=== PATIENT | female | born 1990 | race Caucasian/White ===

== ENCOUNTER 2018-01-19 20:23 | Emergency (ER) | payer OTHER, SELFPAY ==
[2018-01-19] MEDS ORDERED: HYDROCODONE/APAP 7.5/325 MG TAB ONE (20:53)
--- NOTE | 2018-01-19 21:14 | EDPHYS ---
Physician Documentation [facility] Name: Camila Soria Age: 27 yrs Sex: Female : 1990 Arrival Date: 01/19/2018 Time: 20:24 Bed 25 Private MD: ED Physician Agapito Campbell HPI: 01/19 20:41 This 27 yrs old Female presents to ER via Ambulatory with complaints of Wrist pkl Pain. 20:41 The complaints affect the left wrist diffusely. 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 Onset: The symptoms/episode began/occurred 2 day(s) ago. 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 - Social history:: Smoking status: Patient uses tobacco products, smokes one pack cigarettes per day. Patient/guardian denies using alcohol, street drugs. - Ebola Screening: : No symptoms or risks identified at this time. ROS: 20:41 Eyes: Negative for injury, pain, redness, and discharge, ENT: Negative for injury, pkl pain, and discharge, Neck: Negative for injury, pain, and swelling, Cardiovascular: Negative for chest pain, palpitations, and edema, Respiratory: Negative for shortness of breath, cough, wheezing, and pleuritic chest pain, Abdomen/GI: Negative for abdominal pain, nausea, vomiting, diarrhea, and constipation, Back: Negative for injury and pain, : Negative for injury, bleeding, discharge, and swelling, Skin: Negative for injury, rash, and discoloration, Neuro: Negative for headache, weakness, numbness, tingling, and seizure. 20:41 MS/extremity: Positive for pain, of the right wrist. Exam: 20:41 Hand exam: Exam is positive for pain, right wrist. pkl 20:41 Skin: Exam negative for rash. 20:41 Head/Face: Normocephalic, atraumatic. Eyes: Pupils equal round and reactive to light, extra-ocular motions intact. Lids and lashes normal. Conjunctiva and sclera are non-icteric and not injected. Cornea within normal limits. Periorbital areas with no swelling, redness, or edema. ENT: Nares patent. No nasal discharge, no septal abnormalities noted. Tympanic membranes are normal and external auditory canals are clear. Oropharynx with no redness, swelling, or masses, exudates, or evidence of obstruction, uvula midline. Mucous membranes moist. Neck: Trachea midline, no thyromegaly or masses palpated, and no cervical lymphadenopathy. Supple, full range of motion without nuchal rigidity, or vertebral point tenderness. No Meningismus. Chest/axilla: Normal chest wall appearance and motion. Nontender with no deformity. No lesions are appreciated. Cardiovascular: Regular rate and rhythm with a normal S1 and S2. No gallops, murmurs, or rubs. Normal PMI, no JVD. No pulse deficits. Respiratory: Lungs have equal breath sounds bilaterally, clear to auscultation and percussion. No rales, rhonchi or wheezes noted. No increased work of breathing, no retractions or nasal flaring. Abdomen/GI: Soft, non-tender, with normal bowel sounds. No distension or tympany. No guarding or rebound. No evidence of tenderness throughout. Back: No spinal tenderness. No costovertebral tenderness. Full range of motion. Neuro: Awake and alert, GCS 15, oriented to person, place, time, and situation. Cranial nerves II-XII grossly intact. Motor strength 5/5 in all extremities. Sensory grossly intact. Cerebellar exam normal. Normal gait. Vital Signs: 20:35 BP 127 / 78; Pulse 80; Resp 16 S; Temp 98.5(O); Pulse Ox 98% on R/A; Weight 61.23 kg bb (R); Height 5 ft. 0 in. (152.40 cm) (R); Pain 7/10; 20:35 Body Mass Index 26.37 (61.23 kg, 152.40 cm) bb Procedures: 21:12 Splinting: Splint applied to left wrist using wrist splint, applied by myself. Patient pkl tolerated well. MDM: 20:28 Patient medically screened. pkl 21:12 Data reviewed: vital signs, nurses notes, radiologic studies, plain films. pkl 01/19 20:41 Order name: Wrist Left (3 View) XRAY; Complete Time: 22:08 pkl 01/19 21:14 Order name: Sling; Complete Time: 21:34 pkl Administered Medications: 20:53 Drug: [place] (7.5 mg-325 mg) 1 tabs Route: PO; mg2 21:34 Follow up: Response: No adverse reaction; Pain is decreased mg2 Disposition: 01/19/18 21:13 Discharged to Home. Impression: Tendonitis left wrist. - Condition is Stable. - Prescriptions for Diclofenac Sodium 75 mg Oral Tablet Sustained Release - take 1 tablet by ORAL route 2 times per day; 30 tablet. - Work release form, Medication Reconciliation Form, Thank You Letter, Antibiotic Education, Prescription Opioid Use form. - Follow up: Private Physician; When: 2 - 3 days; Reason: Re-evaluation by your physician. - Problem is new. - Symptoms have improved. Signatures: Dispatcher [employer] EDMS Agapito Campbell MD MD pkl Selina Asencio RN RN bb John Prakash RN RN mg2 Corrections: (The following items were deleted from the chart) 21:35 21:13 01/19/2018 21:13 Discharged to Home. Impression: Tendonitis left wrist. Condition mg2 is Stable. Forms are Medication Reconciliation Form, Thank You Letter, Antibiotic Education, Prescription Opioid Use. Follow up: Private Physician; When: 2 - 3 days; Reason: Re-evaluation by your physician. Problem is new. Symptoms have improved. pkl
--- NOTE | 2018-01-19 21:14 | ER ---
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 Transition of care: patient was not received from another setting of care. Onset of symptoms was January 19, 2018. Risk Assessment: Do you want to hurt yourself or someone else? Patient reports no desire to harm self or others. Initial Sepsis Screen: Does the patient meet any 2 criteria? No. Patient's initial sepsis screen is negative. Does the patient have a suspected source of infection? No. Patient's initial sepsis screen is negative. Care prior to arrival: None. 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 - Social history:: Smoking status: Patient uses tobacco products, smokes one pack cigarettes per day. Patient/guardian denies using alcohol, street drugs. - Ebola Screening: : No symptoms or risks identified at this time. Screenin:33 Abuse screen: Denies threats or abuse. Denies injuries from another. Nutritional mg2 screening: No deficits noted. Tuberculosis screening: No symptoms or risk factors identified. Fall Risk None identified. Assessment: 21:15 Musculoskeletal: Circulation, motion, and sensation intact. mg2 21:32 General: Appears in no apparent distress. comfortable, Behavior is calm, cooperative. mg2 Pain: Complains of pain in left wrist Pain does not radiate. Pain currently is 5 out of 10 on a pain scale. Quality of pain is described as aching, Pain began gradually. Neuro: Level of Consciousness is awake, alert, obeys commands, Oriented to person, place, time. Cardiovascular: Capillary refill < 3 seconds Patient's skin is warm and dry. Respiratory: Respiratory: Airway is patent Respiratory effort is even, unlabored, Respiratory pattern is regular, symmetrical. GI: No signs and/or symptoms were reported involving the gastrointestinal system. : No signs and/or symptoms were reported regarding the genitourinary system. EENT: No signs and/or symptoms were reported regarding the EENT system. Derm: Skin is intact, Skin is pink, warm \T\ dry. normal. Vital Signs: 20:35 BP 127 / 78; Pulse 80; Resp 16 S; Temp 98.5(O); Pulse Ox 98% on R/A; Weight 61.23 kg bb (R); Height 5 ft. 0 in. (152.40 cm) (R); Pain 7/10; 20:35 Body Mass Index 26.37 (61.23 kg, 152.40 cm) bb ED Course: 20:24 Patient arrived in ED. ds1 20:28 Agapito Campbell MD is Attending Physician. pkl 20:33 John Prakash RN is Primary Nurse. mg2 20:34 Triage completed. bb 20:35 Arm band placed on Patient placed in an exam room, on a stretcher, on pulse oximetry. bb Family accompanied patient. 21:04 X-ray completed. Portable x-ray completed in exam room. Patient tolerated procedure bb2 well. 21:04 Wrist Left (3 View) XRAY In Process Unspecified. EDMS 21:21 Patient has correct armband on for positive identification. Door closed. mg2 21:22 No provider procedures requiring assistance completed. Patient did not have IV access mg2 during this emergency room visit. Sling applied to left arm. wrist splint applied. Administered Medications: 20:53 Drug: [place] (7.5 mg-325 mg) 1 tabs Route: PO; mg2 21:34 Follow up: Response: No adverse reaction; Pain is decreased mg2 Outcome: 21:13 Discharge ordered by . pkl 21:34 Discharged to home ambulatory, with family. mg2 21:34 Condition: stable 21:34 Discharge instructions given to patient, family, Instructed on discharge instructions, follow up and referral plans. medication usage, Demonstrated understanding of instructions, follow-up care, medications, Prescriptions given X 1. 21:35 Patient left the ED. mg2 Signatures: Dispatcher [employer] EDMS Agapito Campbell MD MD pkl Sanford, Demi ds1 Selina Asencio RN RN bb Jessika Morales bb2 John Prakash RN RN mg2
--- NOTE | 2018-01-19 21:27 | RAD REPORT ---
EXAM DESCRIPTION: RAD - Wrist Left 3 View - 01/19/2018 9:07 pm CLINICAL HISTORY: Nontraumatic left wrist pain COMPARISON: None. FINDINGS: No fracture is identified. There is no dislocation or periosteal reaction noted. No foreig n body or other soft tissue abnormality. IMPRESSION: Negative left wrist examination.
[2018-01-19 21:42] VITALS: BP 127/78; TEMP 98.5; O2SAT 98
== END 2018-01-19 21:35 | disposition home or self-care (01) ==
LOC: ER 20:23
DX: M77.9 Enthesopathy, unspecified (principal); F17.210 Nicotine dependence, cigarettes, uncomplicated; Z91.040 Latex allergy status; Z91.048 Other nonmedicinal substance allergy status
CPT/HCPCS: 99284

== ENCOUNTER 2018-02-19 18:12 | Emergency (ER) | payer SELFPAY ==
[2018-02-19] MEDS ORDERED: ALBUTEROL 2.5 MG/3 ML NEB SOL ONE (18:20)
[2018-02-19] MEDS ORDERED: DIPHENHYDRAMINE 50 MG/ML VIAL ONE (18:20)
[2018-02-19] MEDS ORDERED: METHYLPREDNISOLONE 125 MG INJ ONE (18:20)
[2018-02-19] MEDS ORDERED: FAMOTIDINE 20 MG/2 ML VIAL IV ONE (18:21)
[2018-02-19] MEDS ORDERED: NA CHLORIDE 0.9% 1,000 ML ONE (18:22)
--- NOTE | 2018-02-19 19:23 | ER ---
Nurse's Notes [facility] Name: Camila Soria Age: 27 yrs Sex: Female : 1990 Arrival Date: 02/19/2018 Time: 18:16 Bed 5 Private MD: Diagnosis: Acute bronchospasm;Allergy, unspecified Presentation: 02/19 18:25 Presenting complaint: Patient states: We were celebrating birthdays and I'm allergic to jl7 latex and the fondant KOREY uses has latex in it. I started feeling tingling in my throat and my arms started itching. Transition of care: patient was not received from another setting of care. Onset: The symptoms/episode began/occurred acutely, just prior to arrival. Anaphylaxis evaluation, the patient reports or I have noted the following symptoms which indicate a significant risk of anaphylaxis: angioedema. Onset of symptoms was February 19, 2018. Risk Assessment: Do you want to hurt yourself or someone else? Patient reports no desire to harm self or others. Initial Sepsis Screen: Does the patient meet any 2 criteria? No. Patient's initial sepsis screen is negative. Does the patient have a suspected source of infection? No. Patient's initial sepsis screen is negative. Care prior to arrival: None. 18:25 Method Of Arrival: Ambulatory 7 18:25 Acuity: ANASTASIIA 2 jl7 Triage Assessment: 18:25 General: Appears distressed, uncomfortable, Behavior is cooperative, anxious. Pain: jl7 Complains of pain in headache Pain does not radiate. Pain currently is 8 out of 10 on a pain scale. EENT: No signs and/or symptoms were reported regarding the EENT system. Neuro: Level of Consciousness is awake, alert, obeys commands, Oriented to person, place, time, situation. Cardiovascular: Heart tones S1 S2 present Patient's skin is warm and dry. Respiratory: Airway is patent Trachea midline Respiratory effort is even, unlabored, Respiratory pattern is symmetrical, tachypnea Breath sounds are clear bilaterally. GI: No signs and/or symptoms were reported involving the gastrointestinal system. : No signs and/or symptoms were reported regarding the genitourinary system. Derm: Skin is pink, warm \T\ dry. Musculoskeletal: No signs and/or symptoms reported regarding the musculoskeletal system. 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 - Social history:: Smoking status: Patient/guardian denies using tobacco. - Ebola Screening: : Patient denies travel to an Ebola-affected area in the 21 days before illness onset. Screenin:27 Abuse screen: Denies threats or abuse. Nutritional screening: No deficits noted. tw2 Tuberculosis screening: No symptoms or risk factors identified. Fall Risk None identified. Assessment: 18:39 General: See triage assessment. Respiratory: Airway is patent Trachea midline jl7 Respiratory effort is even, unlabored, Respiratory pattern is regular, symmetrical. 19:21 Reassessment: Dr. Ornelas stated pt could be discharged after NS bolus was infused. tl2 20:12 Reassessment: Patient appears in no apparent distress at this time. Patient is alert, aa1 oriented x 3, equal unlabored respirations, skin warm/dry/pink. NS bolus complete; ok to d/c pt at this time. Discussed d/c \T\ f/u instructions with pt \T\ family; denies questions or concerns at this time Patient denies pain at this time. Patient states feeling better. Respiratory: Airway is patent. Vital Signs: 18:25 BP 121 / 66; Pulse 98; Resp 24; Temp 98.4(TE); Pulse Ox 100% on Nebulizer Mask; tw2 19:20 BP 117 / 65; Pulse 100; Resp 18; Pulse Ox 100% on R/A; tl2 20:12 BP 107 / 62; Pulse 98; Resp 16; Pulse Ox 100% on R/A; Pain 0/10; aa1 ED Course: 18:16 Patient arrived in ED. iw 18:17 Inserted saline lock: 20 gauge in right antecubital area, using aseptic technique. la1 18:19 Girma Ornelas MD is Attending Physician. gs 18:20 Placed in gown. Bed in low position. telemetry monitor on. Pulse ox on. NIBP on. tw2 18:25 Hemal Niño RN is Primary Nurse. jl7 18:26 Arm band placed on. tw2 18:37 Triage completed. jl7 19:11 Report given to MAR Turner. jl7 19:12 Primary Nurse role handed off by Hemal Niño RN jl7 20:12 No provider procedures requiring assistance completed. IV discontinued, intact, aa1 bleeding controlled, No redness/swelling at site. Pressure dressing applied. Administered Medications: 18:22 Drug: Albuterol 2.5 mg Route: Inhalation; tw2 18:24 Drug: Albuterol 2.5 mg Route: Inhalation; tw2 18:45 Follow up: Response: No adverse reaction jl7 18:24 Drug: Albuterol 2.5 mg Route: Inhalation; tw2 18:29 Drug: NS 0.9% 1000 ml Route: IV; Rate: 1000 ml; Site: right antecubital; jl7 20:10 Follow up: IV Status: Completed infusion aa1 18:30 Drug: Benadryl 25 mg Route: IVP; Site: right antecubital; jl7 18:45 Follow up: Response: No adverse reaction jl7 18:32 Drug: Pepcid 20 mg Route: IVP; Site: right antecubital; jl7 18:46 Follow up: Response: No adverse reaction jl7 18:34 Drug: SOLU-Medrol 125 mg Route: IVP; Site: right antecubital; jl7 18:46 Follow up: Response: No adverse reaction jl7 Outcome: 19:22 Discharge ordered by . gs 20:12 Discharged to home ambulatory, with family. aa1 20:12 Condition: good 20:12 Discharge instructions given to patient, Instructed on discharge instructions, follow up and referral plans. medication usage, Demonstrated understanding of instructions, follow-up care, medications, Prescriptions given X 3. 20:15 Patient left the ED. aa1 Signatures: Sharron Hogan RN RN aa1 Cordelia Robertson RN MAR iw Clive Simmons RN RN la1 Carina Spears RN RN tw2 Yue Antonio RN RN tl2 Hemal Niño RN RN jl7 Girma Ornelas MD MD Corrections: (The following items were deleted from the chart) 18:44 08:32 Pepcid 20 mg IVP in right antecubital jl7 jl7 18:45 18:30 Benadryl 25 mg IVP in right antecubital jl7 jl7
--- NOTE | 2018-02-19 19:23 | EDPHYS ---
Physician Documentation [facility] Name: Camila Soria Age: 27 yrs Sex: Female : 1990 Arrival Date: 02/19/2018 Time: 18:16 Bed 5 Private MD: ED Physician Girma Ornelas HPI: 02/19 19:13 This 27 yrs old Female presents to ER via Ambulatory with complaints of gs Allergic Reaction. 19:13 The patient presents with itching, coughing. Onset: The symptoms/episode began/occurred gs acutely, just prior to arrival. Associated signs and symptoms: Pertinent negatives: abdominal pain, Altered mental status hives. Possible causes: exposure to latex. At home the patient or guardian has treated the symptoms with nothing. Severity of symptoms: At their worst the symptoms were moderate in the emergency department the symptoms are unchanged. The patient has experienced similar episodes in the past, a few times. The patient has not recently seen a physician. 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 - Social history:: Smoking status: Patient/guardian denies using tobacco. - Ebola Screening: : Patient denies travel to an Ebola-affected area in the 21 days before illness onset. ROS: 19:13 All other systems are negative. gs Exam: 19:13 Head/Face: Normocephalic, atraumatic. Eyes: Pupils equal round and reactive to light, gs extra-ocular motions intact. Lids and lashes normal. Conjunctiva and sclera are non-icteric and not injected. Cornea within normal limits. Periorbital areas with no swelling, redness, or edema. ENT: Nares patent. No nasal discharge, no septal abnormalities noted. Tympanic membranes are normal and external auditory canals are clear. Oropharynx with no redness, swelling, or masses, exudates, or evidence of obstruction, uvula midline. Mucous membranes moist. Neck: Trachea midline, no thyromegaly or masses palpated, and no cervical lymphadenopathy. Supple, full range of motion without nuchal rigidity, or vertebral point tenderness. No Meningismus. Chest/axilla: Normal chest wall appearance and motion. Nontender with no deformity. No lesions are appreciated. Cardiovascular: Regular rate and rhythm with a normal S1 and S2. No gallops, murmurs, or rubs. Normal PMI, no JVD. No pulse deficits. Abdomen/GI: Soft, non-tender, with normal bowel sounds. No distension or tympany. No guarding or rebound. No evidence of tenderness throughout. Back: No spinal tenderness. No costovertebral tenderness. Full range of motion. Skin: Warm, dry with normal turgor. Normal color with no rashes, no lesions, and no evidence of cellulitis. MS/ Extremity: Pulses equal, no cyanosis. Neurovascular intact. Full, normal range of motion. Neuro: Awake and alert, GCS 15, oriented to person, place, time, and situation. Cranial nerves II-XII grossly intact. Motor strength 5/5 in all extremities. Sensory grossly intact. Cerebellar exam normal. Normal gait. 19:13 Constitutional: The patient appears alert, awake, in obvious distress, moderately distressed. 19:13 Respiratory: mild respiratory distress is noted, Respirations: tachypnea, that is mild, Breath sounds: are clear throughout, no bronchial sounds, no wheezing. Vital Signs: 18:25 BP 121 / 66; Pulse 98; Resp 24; Temp 98.4(TE); Pulse Ox 100% on Nebulizer Mask; tw2 19:20 BP 117 / 65; Pulse 100; Resp 18; Pulse Ox 100% on R/A; tl2 20:12 BP 107 / 62; Pulse 98; Resp 16; Pulse Ox 100% on R/A; Pain 0/10; aa1 MDM: 18:19 Patient medically screened. gs 19:13 Differential diagnosis: anaphylaxis, bronchospasm, urticaria. Data reviewed: vital gs signs, nurses notes. Response to treatment: the patient's symptoms have resolved after treatment, and as a result, I will discharge patient. Administered Medications: 18:22 Drug: Albuterol 2.5 mg Route: Inhalation; tw2 18:24 Drug: Albuterol 2.5 mg Route: Inhalation; tw2 18:45 Follow up: Response: No adverse reaction 7 18:24 Drug: Albuterol 2.5 mg Route: Inhalation; tw2 18:29 Drug: NS 0.9% 1000 ml Route: IV; Rate: 1000 ml; Site: right antecubital; jl7 20:10 Follow up: IV Status: Completed infusion aa1 18:30 Drug: Benadryl 25 mg Route: IVP; Site: right antecubital; jl7 18:45 Follow up: Response: No adverse reaction jl7 18:32 Drug: Pepcid 20 mg Route: IVP; Site: right antecubital; jl7 18:46 Follow up: Response: No adverse reaction jl7 18:34 Drug: SOLU-Medrol 125 mg Route: IVP; Site: right antecubital; jl7 18:46 Follow up: Response: No adverse reaction 7 Disposition: 02/19/18 19:22 Discharged to Home. Impression: Acute bronchospasm, Allergy, unspecified. - Condition is Stable. - Discharge Instructions: Allergies, Adult. - Prescriptions for Prednisone 20 mg Oral Tablet - take 1 tablet by ORAL route once daily for 5 days; 5 tablet. Albuterol Sulfate 90 mcg/actuation - inhale 1-2 puff by INHALATION route every 4-6 hours; 1 Inhaler. Pepcid 20 mg Oral Tablet - take 1 tablet by ORAL route once daily; 10 tablet. - Medication Reconciliation Form, Thank You Letter, Antibiotic Education, Prescription Opioid Use form. - Follow up: Private Physician; When: 2 - 3 days; Reason: Re-evaluation by your physician. Signatures: Sharron Hogan RN RN aa1 Cordelia Robertson RN RN iw Carina Spears RN RN tw2 Hemal Niño RN RN jl7 Girma Ornelas MD MD Corrections: (The following items were deleted from the chart) 20:15 19:22 02/19/2018 19:22 Discharged to Home. Impression: Acute bronchospasm; Allergy, aa1 unspecified. Condition is Stable. Forms are Medication Reconciliation Form, Thank You Letter, Antibiotic Education, Prescription Opioid Use. Follow up: Private Physician; When: 2 - 3 days; Reason: Re-evaluation by your physician. gs
[2018-02-19 21:22] VITALS: TEMP 98.4; O2SAT 100
[2018-02-19 21:24] VITALS: BP 107/62
== END 2018-02-19 20:15 | disposition home or self-care (01) ==
LOC: ER 18:12
DX: J98.01 Acute bronchospasm (principal); Z91.040 Latex allergy status; Z91.048 Other nonmedicinal substance allergy status
CPT/HCPCS: 96361; 96374; 96375; 99285; J2930; J7030

== ENCOUNTER 2018-05-08 20:24 | Emergency (ER) | payer OTHER ==
--- NOTE | 2018-05-08 20:46 | EDPHYS ---
Physician Documentation [facility] Name: Camila Soria Age: 28 yrs Sex: Female : 1990 Arrival Date: 05/08/2018 Time: 20:27 Bed 16 Private MD: ED Physician Agapito Campbell HPI: 05/08 20:56 This 28 yrs old Female presents to ER via Ambulatory with complaints of snw Facial Injury. 20:56 The patient or guardian reports pain, swelling. The complaints affect the nose. Context snw of injury: The problem was sustained at work, resulted from a direct blow, another person's head. Onset: The symptoms/episode began/occurred acutely. Associated signs and symptoms: Loss of consciousness: This patient did not experience any loss of consciousness. Pertinent positives: nausea. The patient has not experienced similar symptoms in the past. It is unknown whether or not the patient has recently seen a physician. 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 - Social history:: Smoking status: Patient uses tobacco products, smokes one pack cigarettes per day. - Ebola Screening: : No symptoms or risks identified at this time. ROS: 20:53 Constitutional: Negative for fever, chills, and weight loss, Eyes: Negative for injury, snw pain, redness, and discharge, ENT: Negative for discharge, + nasal pain post contusion Neck: Negative for injury, pain, and swelling, Cardiovascular: Negative for chest pain, palpitations, and edema, Respiratory: Negative for shortness of breath, cough, wheezing, and pleuritic chest pain, Abdomen/GI: Negative for abdominal pain, nausea, vomiting, diarrhea, and constipation, Back: Negative for injury and pain, : Negative for injury, bleeding, discharge, and swelling, MS/Extremity: Negative for injury and deformity, Skin: Negative for injury, rash, and discoloration, Neuro: Negative for headache, weakness, numbness, tingling, and seizure. Exam: 20:53 Constitutional: This is a well developed, well nourished patient who is awake, alert, snw and in no acute distress. Head/Face: Normocephalic, atraumatic. Eyes: Pupils equal round and reactive to light, extra-ocular motions intact. Lids and lashes normal. Conjunctiva and sclera are non-icteric and not injected. Cornea within normal limits. Periorbital areas with no swelling, redness, or edema. ENT: Nares patent. No nasal discharge, no septal abnormalities noted. Tympanic membranes are normal and external auditory canals are clear. Oropharynx with no redness, swelling, or masses, exudates, or evidence of obstruction, uvula midline. Mucous membranes moist. Neck: Trachea midline, no thyromegaly or masses palpated, and no cervical lymphadenopathy. Supple, full range of motion without nuchal rigidity, or vertebral point tenderness. No Meningismus. Chest/axilla: Normal chest wall appearance and motion. Nontender with no deformity. No lesions are appreciated. Cardiovascular: Regular rate and rhythm with a normal S1 and S2. No gallops, murmurs, or rubs. Normal PMI, no JVD. No pulse deficits. Respiratory: Lungs have equal breath sounds bilaterally, clear to auscultation and percussion. No rales, rhonchi or wheezes noted. No increased work of breathing, no retractions or nasal flaring. Abdomen/GI: Soft, non-tender, with normal bowel sounds. No distension or tympany. No guarding or rebound. No evidence of tenderness throughout. Back: No spinal tenderness. No costovertebral tenderness. Full range of motion. Skin: Warm, dry with normal turgor. Normal color with no rashes, no lesions, and no evidence of cellulitis. MS/ Extremity: Pulses equal, no cyanosis. Neurovascular intact. Full, normal range of motion. Neuro: Awake and alert, GCS 15, oriented to person, place, time, and situation. Cranial nerves II-XII grossly intact. Motor strength 5/5 in all extremities. Sensory grossly intact. Cerebellar exam normal. Normal gait. Psych: Awake, alert, with orientation to person, place and time. Behavior, mood, and affect are within normal limits. Vital Signs: 20:31 BP 148 / 100; Pulse 96; Resp 16; Temp 98.3; Pulse Ox 98% on R/A; Weight 56.7 kg; Height la1 5 ft. 1 in. (154.94 cm); 20:31 Body Mass Index 23.62 (56.70 kg, 154.94 cm) la1 Levon Coma Score: 20:54 Eye Response: spontaneous(4). Verbal Response: oriented(5). Motor Response: obeys snw commands(6). Total: 15. 20:56 Eye Response: spontaneous(4). Verbal Response: oriented(5). Motor Response: obeys snw commands(6). Total: 15. MDM: 20:40 Patient medically screened. snw 20:54 Data reviewed: vital signs, nurses notes. Counseling: I had a detailed discussion with snw the patient and/or guardian regarding: the historical points, exam findings, and any diagnostic results supporting the discharge/admit diagnosis, the presence of at least one elevated blood pressure reading (>120/80) during this emergency department visit, the need for outpatient follow up, for definitive care, to return to the emergency department if symptoms worsen or persist or if there are any questions or concerns that arise at home. Special discussion: I have referred the patient to see his PCP for further evaluation of high blood pressure. Based on the patient's history, exam and DX evaluation, there is no indication for emergent intervention or inpatient TX. It is understood by the patient/guardian that if the SXs persist or worsen they need to return immediately for re-evaluation. Based on the history and exam findings, there is no indication for further emergent testing or inpatient evaluation. I discussed with the patient/guardian the need to see the ENT specialist for further evaluation of the symptoms. I discussed with the patient/guardian the need to see the primary care provider for further evaluation of the symptoms. Administered Medications: 20:59 Drug: Zofran 4 mg Route: PO; jb4 20:59 Follow up: Response: No adverse reaction jb4 Disposition: 23:09 Co-signature as Attending Physician, Agapito Campbell MD. pkl Disposition: 05/08/18 20:46 Discharged to Home. Impression: Contusion of nose. - Condition is Stable. - Discharge Instructions: Contusion. - Prescriptions for Zofran 4 mg Oral Tablet - take 1 tablet by ORAL route every 12 hours As needed; 6 tablet. - Medication Reconciliation Form, Thank You Letter, Antibiotic Education, Prescription Opioid Use form. - Follow up: Emergency Department; When: As needed; Reason: Worsening of condition. Follow up: Private Physician; When: 2 - 3 days; Reason: Recheck today's complaints, Continuance of care. Signatures: Agapito Campbell MD MD pkl Therrien, Shelly, TUBE SIZER AND CUTTER OPERATOR-C TUBE SIZER AND CUTTER OPERATOR-Csnw Clive Simmons RN RN la1 Serg Garcia RN RN jb4 Corrections: (The following items were deleted from the chart) 21:01 20:46 05/08/2018 20:46 Discharged to Home. Impression: Contusion of nose. Condition is jb4 Stable. Forms are Medication Reconciliation Form, Thank You Letter, Antibiotic Education, Prescription Opioid Use. Follow up: Emergency Department; When: As needed; Reason: Worsening of condition. Follow up: Private Physician; When: 2 - 3 days; Reason: Recheck today's complaints, Continuance of care. snw
--- NOTE | 2018-05-08 20:46 | ER ---
Nurse's Notes [facility] Name: Camila Soria Age: 28 yrs Sex: Female : 1990 Arrival Date: 05/08/2018 Time: 20:27 Bed 16 Private MD: Diagnosis: Contusion of nose Presentation: 05/08 20:30 Presenting complaint: Patient states: I was washing the dogs and one of them head la1 butted me in just below the nose. I am feeling nauseous and dizzy. Pt denies LOC. Transition of care: patient was not received from another setting of care. Onset of symptoms was May 08, 2018. Risk Assessment: Do you want to hurt yourself or someone else? Patient reports no desire to harm self or others. Initial Sepsis Screen: Does the patient meet any 2 criteria? No. Patient's initial sepsis screen is negative. Does the patient have a suspected source of infection? No. Patient's initial sepsis screen is negative. Care prior to arrival: None. 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 - Social history:: Smoking status: Patient uses tobacco products, smokes one pack cigarettes per day. - Ebola Screening: : No symptoms or risks identified at this time. Screenin:35 Abuse screen: Denies threats or abuse. Nutritional screening: No deficits noted. jb4 Tuberculosis screening: No symptoms or risk factors identified. Fall Risk None identified. Assessment: 20:35 General: Appears in no apparent distress. comfortable, Behavior is calm, cooperative. jb4 Pain: Complains of pain in nose Pain does not radiate. Pain currently is 0 out of 10 on a pain scale. Neuro: Level of Consciousness is awake, alert, obeys commands, Oriented to person, place, time, situation. Cardiovascular: Patient's skin is warm and dry. Respiratory: Airway is patent Respiratory effort is even, unlabored, Respiratory pattern is regular, symmetrical. GI: Reports nausea. : No signs and/or symptoms were reported regarding the genitourinary system. EENT: No signs and/or symptoms were reported regarding the EENT system. Derm: Skin is intact, Skin is pink, warm \T\ dry. Musculoskeletal: Circulation, motion, and sensation intact. Vital Signs: 20:31 BP 148 / 100; Pulse 96; Resp 16; Temp 98.3; Pulse Ox 98% on R/A; Weight 56.7 kg; Height la1 5 ft. 1 in. (154.94 cm); 20:31 Body Mass Index 23.62 (56.70 kg, 154.94 cm) la1 Hayden Coma Score: 20:54 Eye Response: spontaneous(4). Verbal Response: oriented(5). Motor Response: obeys snw commands(6). Total: 15. 20:56 Eye Response: spontaneous(4). Verbal Response: oriented(5). Motor Response: obeys snw commands(6). Total: 15. ED Course: 20:27 Patient arrived in ED. es 20:31 Triage completed. la1 20:31 Arm band placed on left wrist. la1 20:35 Patient has correct armband on for positive identification. Bed in low position. Side jb4 rails up X 1. Pulse ox on. NIBP on. 20:35 No provider procedures requiring assistance completed. Patient did not have IV access jb4 during this emergency room visit. 20:39 Margaret Ac FNP-C is [facility]. snw 20:39 Agapito Campbell MD is Attending Physician. snw 20:48 Serg Garcia, RN is Primary Nurse. jb4 Administered Medications: 20:59 Drug: Zofran 4 mg Route: PO; jb4 20:59 Follow up: Response: No adverse reaction jb4 Outcome: 20:46 Discharge ordered by . snw 20:50 Discharged to home ambulatory. jb4 20:50 Condition: stable 20:50 Discharge instructions given to patient, family, Instructed on discharge instructions, jb4 follow up and referral plans. Demonstrated understanding of instructions, follow-up care. 21:01 Patient left the ED. jb4 Signatures: Margaret Ac FNP-C [employer]-Csnw Constance Stein Lee, RN RN la1 Serg Garcia RN RN jb4 Corrections: (The following items were deleted from the chart) 21:35 21:30 General: Appears in no apparent distress. comfortable, Behavior is calm, jb4 cooperative, jb4 :35 21:30 Pain: Complains of pain in nose Pain does not radiate. Pain currently is 0 out of jb4 10 on a pain scale. jb4 :35 21:30 Neuro: Level of Consciousness is awake, alert, obeys commands, Oriented to jb4 person, place, time, situation, jb4 35 21:30 Cardiovascular: Patient's skin is warm and dry. jb4 jb4 35 21:30 Respiratory: Airway is patent Respiratory effort is even, unlabored, Respiratory jb4 pattern is regular, symmetrical, jb4 21:30 GI: Reports nausea, jb4 jb4 : 21:30 : No signs and/or symptoms were reported regarding the genitourinary system. [id number] :35 21:30 EENT: No signs and/or symptoms were reported regarding the EENT system. jb4 jb4 :35 21:30 Derm: Skin is intact, Skin is pink, warm \T\ dry. jb4 jb4 35 21:30 Musculoskeletal: Circulation, motion, and sensation intact. jb4 jb4
[2018-05-08] MEDS ORDERED: ONDANSETRON 4 MG (ODT) TAB ONE (21:02)
[2018-05-08 22:01] VITALS: BP 148/100; TEMP 98.3; O2SAT 98
== END 2018-05-08 21:01 | disposition home or self-care (01) ==
LOC: ER 20:24
DX: S00.33XA Contusion of nose, initial encounter (principal); W50.0XXA Accidental hit or strike by another person, initial encounter; Y93.9 Activity, unspecified; Y92.89 Other specified places as the place of occurrence of the external cause; Y99.8 Other external cause status; Z91.040 Latex allergy status; Z91.048 Other nonmedicinal substance allergy status; F17.210 Nicotine dependence, cigarettes, uncomplicated
CPT/HCPCS: 99283

== ENCOUNTER 2018-08-05 18:51 | Emergency (ER) | payer OTHER ==
[2018-08-05] MEDS ORDERED: IBUPROFEN 400 MG TAB ONE (20:22)
[2018-08-05] MEDS ORDERED: MEPERIDINE HCL 50 MG/ML AMP ONE (20:22)
[2018-08-05] MEDS ORDERED: ONDANSETRON 4 MG (ODT) TAB ONE (20:22)
--- NOTE | 2018-08-05 20:49 | EDPHYS ---
Physician Documentation [facility] Name: Camila Soria Age: 28 yrs Sex: Female : 1990 Arrival Date: 08/05/2018 Time: 18:52 Bed 17 Private MD: Tae Zambrano E ED Physician Franko Hadley HPI: 08/05 20:46 This 28 yrs old Female presents to ER via Ambulatory with complaints of Back jr8 Pain. 20:46 The patient presents with pain that is acute. The symptoms are located in the low back. jr8 Onset: The symptoms/episode began/occurred acutely, yesterday. radiation down right leg. Associated signs and symptoms: The patient has no apparent associated signs or symptoms. The problem was sustained when lifting patient. Modifying factors: The patient symptoms are alleviated by nothing, the patient symptoms are aggravated by any movement. Severity of symptoms: At their worst the symptoms were moderate, in the emergency department the symptoms are unchanged. The patient has not experienced similar symptoms in the past. The patient has not recently seen a physician. Was lifting heavy patient and felt pop in low back. Pain since then that is not going away. Denies numbness, tingling, weakness, saddle anesthesia, bowel, or bladder dysfunction . 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 - Social history:: Smoking status: Patient uses tobacco products, smokes one-half pack cigarettes per day, Patient uses alcohol, occasionally. street drugs, marijuana. - Ebola Screening: : No symptoms or risks identified at this time. ROS: 20:46 Eyes: Negative for injury, pain, redness, and discharge, ENT: Negative for injury, jr8 pain, and discharge, Neck: Negative for injury, pain, and swelling, Cardiovascular: Negative for chest pain, palpitations, and edema, Respiratory: Negative for shortness of breath, cough, wheezing, and pleuritic chest pain, Abdomen/GI: Negative for abdominal pain, nausea, vomiting, diarrhea, and constipation, MS/Extremity: Negative for injury and deformity, Skin: Negative for injury, rash, and discoloration, Neuro: Negative for headache, weakness, numbness, tingling, and seizure. 20:46 Back: Positive for pain at rest, pain with movement, radiated pain, of the low back area. Exam: 20:46 Eyes: Pupils equal round and reactive to light, extra-ocular motions intact. Lids and jr8 lashes normal. Conjunctiva and sclera are non-icteric and not injected. Cornea within normal limits. Periorbital areas with no swelling, redness, or edema. ENT: Nares patent. No nasal discharge, no septal abnormalities noted. Tympanic membranes are normal and external auditory canals are clear. Oropharynx with no redness, swelling, or masses, exudates, or evidence of obstruction, uvula midline. Mucous membranes moist. Neck: Trachea midline, no thyromegaly or masses palpated, and no cervical lymphadenopathy. Supple, full range of motion without nuchal rigidity, or vertebral point tenderness. No Meningismus. Cardiovascular: Regular rate and rhythm with a normal S1 and S2. No gallops, murmurs, or rubs. Normal PMI, no JVD. No pulse deficits. Respiratory: Lungs have equal breath sounds bilaterally, clear to auscultation and percussion. No rales, rhonchi or wheezes noted. No increased work of breathing, no retractions or nasal flaring. Abdomen/GI: Soft, non-tender, with normal bowel sounds. No distension or tympany. No guarding or rebound. No evidence of tenderness throughout. Skin: Warm, dry with normal turgor. Normal color with no rashes, no lesions, and no evidence of cellulitis. MS/ Extremity: Pulses equal, no cyanosis. Neurovascular intact. Full, normal range of motion. Neuro: Awake and alert, GCS 15, oriented to person, place, time, and situation. Cranial nerves II-XII grossly intact. Motor strength 5/5 in all extremities. Sensory grossly intact. Cerebellar exam normal. Normal gait. 20:46 Back: pain, that is moderate, of the lumbar area, left low back, left mid back, right mid back and right low back, ROM is painful, normal spinal alignment noted, muscle spasm, is appreciated in the left low back, left mid back, right mid back and right low back. Vital Signs: 19:09 BP 121 / 78; Pulse 101; Resp 16; Temp 98.3(TE); Pulse Ox 97% on R/A; Weight 54.88 kg jb4 (R); Height 5 ft. 0 in. (152.40 cm) (R); Pain 7/10; 20:45 BP 103 / 55; Pulse 83; Resp 16; Pulse Ox 98% on R/A; jb4 19:09 Body Mass Index 23.63 (54.88 kg, 152.40 cm) jb4 MDM: 19:58 Patient medically screened. jr8 20:46 Data reviewed: vital signs, nurses notes, and as a result, I will discharge patient. jr8 Data interpreted: Pulse oximetry: on room air is 97 %. Interpretation: normal. Counseling: I had a detailed discussion with the patient and/or guardian regarding: the historical points, exam findings, and any diagnostic results supporting the discharge/admit diagnosis, the need for outpatient follow up, a family practitioner, to return to the emergency department if symptoms worsen or persist or if there are any questions or concerns that arise at home. Administered Medications: 20:21 Drug: Ibuprofen 800 mg Route: PO; jb4 20:58 Follow up: Response: No adverse reaction; Pain is decreased jb4 20:21 Drug: Demerol 50 mg Route: IM; Site: left gluteus; jb4 20:58 Follow up: Response: No adverse reaction; Pain is decreased jb4 20:21 Drug: Zofran 4 mg Route: PO; jb4 20:58 Follow up: Response: No adverse reaction; Nausea is decreased jb4 Disposition: 08/06 06:46 Co-signature as Attending Physician, Franko Hadley MD I agree with the assessment and kdr plan of care. Disposition: 08/05/18 20:48 Discharged to Home. Impression: Low back pain, Radiculopathy, lumbar region. - Condition is Stable. - Discharge Instructions: Back Pain, Adult, Musculoskeletal Pain, Back Exercises, [id number], Heat Therapy. - Prescriptions for Ibuprofen 800 mg Oral Tablet - take 1 tablet by ORAL route every 12 hours As needed take with food; 20 tablet. Cyclobenzaprine 10 mg Oral Tablet - take 1 tablet by ORAL route every 8 hours As needed; 30 tablet. Medrol (Pritesh) 4 mg Oral Tablets, Dose Pack - take 1 tablet by ORAL route as directed - follow package instructions; 1 packet. - Medication Reconciliation Form, Thank You Letter, Antibiotic Education, Prescription Opioid Use, Work release form form. - Follow up: Tae Zambrano MD; When: 2 - 3 days; Reason: Recheck today's complaints, Continuance of care, Re-evaluation by your physician. - Problem is new. - Symptoms have improved. Signatures: Franko Hadley MD MD kdr Regulo Andrew PA PA jr8 Serg Garcia, RN RN jb4 Corrections: (The following items were deleted from the chart) 08/05 21:02 20:48 08/05/2018 20:48 Discharged to Home. Impression: Low back pain; Radiculopathy, jb4 lumbar region. Condition is Stable. Forms are Medication Reconciliation Form, Thank You Letter, Antibiotic Education, Prescription Opioid Use. Follow up: Tae Zambrano; When: 2 - 3 days; Reason: Recheck today's complaints, Continuance of care, Re-evaluation by your physician. Problem is new. Symptoms have improved. jr8
--- NOTE | 2018-08-05 20:49 | ER ---
Nurse's Notes [facility] Name: Camila Soria Age: 28 yrs Sex: Female : 1990 Arrival Date: 08/05/2018 Time: 18:52 Bed 17 Private MD: Tae Zambrano E Diagnosis: Low back pain;Radiculopathy, lumbar region Presentation: 08/05 19:09 Presenting complaint: Patient states: I have had lower back pain for 1 week and it has jb4 been progressively getting worse. 19:09 Transition of care: patient was not received from another setting of care. Onset of jb4 symptoms was July 29, 2018. Risk Assessment: Do you want to hurt yourself or someone else? Patient reports no desire to harm self or others. Initial Sepsis Screen: Does the patient meet any 2 criteria? HR > 90 bpm. Yes Does the patient have a suspected source of infection? No. Patient's initial sepsis screen is negative. Care prior to arrival: None. 19:09 Method Of Arrival: Ambulatory jb4 19:09 Acuity: ANASTASIIA 4 jb4 Triage Assessment: 19:09 General: Appears in no apparent distress. uncomfortable, Behavior is calm, cooperative, jb4 appropriate for age. Pain: Complains of pain in sacrum, left low back and right low back Pain radiates to mid back area and right leg Pain currently is 7 out of 10 on a pain scale. Quality of pain is described as shooting, stabbing, pinching, Pain began 1 week ago. EENT: No signs and/or symptoms were reported regarding the EENT system. Neuro: Level of Consciousness is awake, alert, obeys commands, Oriented to person, place, time, situation. Cardiovascular: Patient's skin is warm and dry. Respiratory: Airway is patent Respiratory effort is even, unlabored, Respiratory pattern is regular, symmetrical. GI: No signs and/or symptoms were reported involving the gastrointestinal system. : No signs and/or symptoms were reported regarding the genitourinary system. Derm: Skin is intact, Skin is pink, warm \T\ dry. Musculoskeletal: Circulation, motion, and sensation intact. 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 - Social history:: Smoking status: Patient uses tobacco products, smokes one-half pack cigarettes per day, Patient uses alcohol, occasionally. street drugs, marijuana. - Ebola Screening: : No symptoms or risks identified at this time. Screenin:09 Abuse screen: Denies threats or abuse. Nutritional screening: No deficits noted. jb4 Tuberculosis screening: No symptoms or risk factors identified. Fall Risk None identified. Assessment: 19:09 General: see triage assessment.. jb4 19:09 Neuro: Level of Consciousness is awake, alert, obeys commands, Oriented to person, jb4 place, time, situation, Moves all extremities. Full function Gait is steady. 20:00 Reassessment: Patient appears in no apparent distress at this time. Patient and/or jb4 family updated on plan of care and expected duration. Pain level reassessed. Patient is alert, oriented x 3, equal unlabored respirations, skin warm/dry/pink. 21:00 Reassessment: Patient appears in no apparent distress at this time. Patient and/or jb4 family updated on plan of care and expected duration. Pain level reassessed. Patient is alert, oriented x 3, equal unlabored respirations, skin warm/dry/pink. Vital Signs: 19:09 BP 121 / 78; Pulse 101; Resp 16; Temp 98.3(TE); Pulse Ox 97% on R/A; Weight 54.88 kg jb4 (R); Height 5 ft. 0 in. (152.40 cm) (R); Pain 7/10; 20:45 BP 103 / 55; Pulse 83; Resp 16; Pulse Ox 98% on R/A; jb4 19:09 Body Mass Index 23.63 (54.88 kg, 152.40 cm) 4 ED Course: 18:52 Patient arrived in ED. sb2 18:53 Tae Zambrano MD is Private Physician. sb2 19:09 Arm band placed on left wrist. jb4 19:09 Patient has correct armband on for positive identification. Bed in low position. Call jb4 light in reach. Side rails up X 1. Pulse ox on. NIBP on. 19:16 Serg Garcia, RN is Primary Nurse. jb4 19:17 Regulo Andrew PA is PHCP. jr8 19:17 Franko Hadley MD is Attending Physician. jr8 19:30 Triage completed. jb4 20:48 Tae Zambrano MD is Referral Physician. jr8 21:02 No provider procedures requiring assistance completed. Patient did not have IV access jb4 during this emergency room visit. Administered Medications: 20:21 Drug: Ibuprofen 800 mg Route: PO; jb4 20:58 Follow up: Response: No adverse reaction; Pain is decreased jb4 20:21 Drug: Demerol 50 mg Route: IM; Site: left gluteus; jb4 20:58 Follow up: Response: No adverse reaction; Pain is decreased jb4 20:21 Drug: Zofran 4 mg Route: PO; jb4 20:58 Follow up: Response: No adverse reaction; Nausea is decreased jb4 Outcome: 20:48 Discharge ordered by MD. jr8 21:02 Discharged to home ambulatory, with family. jb4 21:02 Condition: stable 21:02 Discharge instructions given to patient, family, Instructed on discharge instructions, follow up and referral plans. medication usage, Demonstrated understanding of instructions, follow-up care, medications, Prescriptions given X 3. 21:02 Patient left the ED. jb4 Signatures: Regulo Andrew PA PA jr8 Serg Garcia, RN RN jb4 Inessa Garcia sb2
[2018-08-05 21:32] VITALS: TEMP 98.3
[2018-08-05 21:33] VITALS: BP 103/55; O2SAT 98
== END 2018-08-05 21:02 | disposition home or self-care (01) ==
LOC: ER 18:51
DX: M54.16 Radiculopathy, lumbar region (principal); M54.5 Low back pain; Z91.040 Latex allergy status; F41.9 Anxiety disorder, unspecified; F31.9 Bipolar disorder, unspecified; F43.10 Post-traumatic stress disorder, unspecified; F17.210 Nicotine dependence, cigarettes, uncomplicated
CPT/HCPCS: 96372; 99283; J2175

== ENCOUNTER 2019-03-01 17:53 | Emergency (ER) | payer OTHER, SELFPAY ==
[2019-03-01] MEDS ORDERED: LORazepam 2 MG/ML VIAL ONE (18:30)
[2019-03-01] MEDS ORDERED: KETOROLAC 30 MG/ML INJ ONE (18:31)
[2019-03-01 19:02] LABS: Absolute Lymphocytes (CBC) 1.5 K/uL (0.7-4.9); Basophils % 0.5 % (0-1.3); Hematocrit 42.2 % (36.0-45.0); Lymphocytes % 25.7 % (15.3-44.8); MPV 7.7 fL (7.6-11.3); RBC Red Blood Cell Count 4.43 M/uL (3.86-4.86)
[2019-03-01 19:03] LABS: Protime INR 1.04
--- NOTE | 2019-03-01 19:07 | RAD REPORT ---
EXAM DESCRIPTION: RAD - Chest Single View - 03/01/2019 6:56 pm CLINICAL HISTORY: CHEST PRESSURE Chest pain. COMPARISON: CHEST PA AND LAT 2 VIEW dated 06/25/2015; CHEST SINGLE VIEW dated 09/30/2010; ABDOMEN ACU TE SERIES dated 01/09/2003 FINDINGS: Portable technique limits examination quality. The lungs are grossly clear. The heart is normal in size. No displaced fractures. IMPRESSION: No acute intrathoracic process suspected.
[2019-03-01 19:35] LABS: BUN Blood Urea Nitrogen 19 mg/dL (7-18); Bicarbonate 26 mmol/L (21-32); Glucose Level 117 mg/dL (74-106); NT PRO-BNP 67 pg/mL (<125); Potassium 3.1 mmol/L (3.5-5.1); Sodium Level 143 mmol/L (136-145); Troponin (Emerg Dept Use Only) < 0.02 ng/mL (0.0-0.045)
[2019-03-01] MEDS ORDERED: POTASSIUM CL SA 10 MEQ TAB PO ONE (20:39)
--- NOTE | 2019-03-01 21:10 | ER ---
Nurse's Notes [facility] Name: Camila Soria Age: 29 yrs Sex: Female : 1990 Arrival Date: 03/01/2019 Time: 17:56 Bed 25 Private MD: Diagnosis: Chest pain, unspecified Presentation: 03/01 18:06 Presenting complaint: Patient states: at about 1600 today I was driving and I started la1 to feel like I could not take a deep breath, then it hurts when I take a deep breath. My heart started racing and it has not stopped since then. Transition of care: patient was not received from another setting of care. Onset of symptoms was March 01, 2019. Risk Assessment: Do you want to hurt yourself or someone else? Patient reports no desire to harm self or others. Initial Sepsis Screen: Does the patient meet any 2 criteria? No. Patient's initial sepsis screen is negative. Does the patient have a suspected source of infection? No. Patient's initial sepsis screen is negative. Care prior to arrival: None. 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 - Social history:: Smoking status: Patient uses tobacco products, smokes one-half pack cigarettes per day. - Ebola Screening: : No symptoms or risks identified at this time. Screenin:09 Abuse screen: Denies threats or abuse. Nutritional screening: No deficits noted. tw2 Tuberculosis screening: No symptoms or risk factors identified. Fall Risk None identified. Assessment: 18:11 Pain: Pain does not radiate. Pain began 2 hours ago. Cardiovascular: Reports shortness tw2 of breath, chest pressure. 18:20 General: Appears in no apparent distress. slender, Behavior is calm, cooperative, tw2 appropriate for age. Pain: Complains of pain in chest. Neuro: Level of Consciousness is awake, alert, obeys commands, Oriented to person, place, time, situation. Cardiovascular: Heart tones S1 S2 Patient's skin is warm and dry. Respiratory: Airway is patent Respiratory effort is even, unlabored, Respiratory pattern is regular, symmetrical, Breath sounds are clear bilaterally. GI: No signs and/or symptoms were reported involving the gastrointestinal system. Abdomen is flat, Bowel sounds present X 4 quads. : No signs and/or symptoms were reported regarding the genitourinary system. EENT: No signs and/or symptoms were reported regarding the EENT system. Derm: No signs and/or symptoms reported regarding the dermatologic system. Musculoskeletal: Range of motion: intact in all extremities. 19:09 Reassessment: Patient appears in no apparent distress at this time. Patient and/or ca1 family updated on plan of care and expected duration. Pain level reassessed. Patient is alert, oriented x 3, equal unlabored respirations, skin warm/dry/pink. 20:05 Reassessment: Patient appears in no apparent distress at this time. Patient and/or ca1 family updated on plan of care and expected duration. Pain level reassessed. Patient is alert, oriented x 3, equal unlabored respirations, skin warm/dry/pink. 21:16 Reassessment: Patient appears in no apparent distress at this time. Patient is alert, ca1 oriented x 3, equal unlabored respirations, skin warm/dry/pink. Vital Signs: 18:07 BP 115 / 65; Pulse 105; Resp 16; Temp 97.4; Pulse Ox 100% on R/A; Weight 61.23 kg; la1 Height 5 ft. 1 in. (154.94 cm); 19:09 BP 118 / 69; Pulse 81; Resp 17 S; Pulse Ox 99% on R/A; ca1 20:05 BP 110 / 61; Pulse 64; Resp 17 S; Pulse Ox 98% on R/A; ca1 21:16 BP 101 / 59; Pulse 73; Resp 16 S; Pulse Ox 98% on R/A; ca1 18:07 Body Mass Index 25.51 (61.23 kg, 154.94 cm) la1 ED Course: 17:56 Patient arrived in ED. mr 18:07 Triage completed. la1 18:08 Arm band placed on right wrist. la1 18:09 Regulo Andrew PA is PHCP. jr8 18:09 Ben Barboza MD is Attending Physician. jr8 18:09 Spears, Carina, RN is Primary Nurse. tw2 18:10 Bed in low position. Call light in reach. property assessment monitor on. Pulse ox on. NIBP on. tw2 18:10 Patient maintains SpO2 saturation greater than 95% on room air. tw2 18:30 Inserted saline lock: 22 gauge in right hand, using aseptic technique. Blood collected. tw2 19:02 Report given to MAR Tavarez. tw2 21:17 No provider procedures requiring assistance completed. IV discontinued, intact, ca1 bleeding controlled, No redness/swelling at site. Pressure dressing applied. Administered Medications: 18:37 Drug: Ativan 1 mg Route: IVP; Site: right hand; rv 18:38 Drug: TORadol - Ketorolac 15 mg Route: IVP; Site: right hand; rv 20:44 Drug: Potassium Chloride 40 mEq Route: PO; rv Outcome: 21:00 Discharge ordered by . annie 21:17 Discharged to home ambulatory, with friend. ca1 21:17 Condition: stable 21:17 Discharge instructions given to patient, Instructed on discharge instructions, follow up and referral plans. Demonstrated understanding of instructions, follow-up care. 21:17 Patient left the ED. ca1 Signatures: Kourtney Terry mr AndrewRegulo, PA PA jr8 Clive Simmons RN RN la1 Carina Spears, RN RN tw2 Kelvin Bryant RN RN rv Daysi Joseph, MAR RN ca1
--- NOTE | 2019-03-01 21:10 | EDPHYS ---
Physician Documentation [facility] Name: Camila Soria Age: 29 yrs Sex: Female : 1990 Arrival Date: 03/01/2019 Time: 17:56 Bed 25 Private MD: ED Physician Ben Barboza HPI: 03/01 18:27 This 29 yrs old Female presents to ER via Ambulatory with complaints of Chest jr8 Pressure, Breathing Difficulty. 18:27 The patient or guardian reports chest pain that is located primarily in the anterior jr8 chest wall, bilaterally. The pain does not radiate. Associated signs and symptoms: Pertinent positives: shortness of breath. The chest pain is described as sharp. Duration: The patient or guardian reports multiple episodes, that are intermittent. Modifying factors: The symptoms are alleviated by nothing. the symptoms are aggravated by breathing, cough, movement. Severity of pain: At its worst the pain was moderate in the emergency department the pain is unchanged. The patient has not experienced similar symptoms in the past. The patient has not recently seen a physician. Sudden onset of pain since 4 pm this afternoon that will not relieve. Denies trauma . 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 - Social history:: Smoking status: Patient uses tobacco products, smokes one-half pack cigarettes per day. - Ebola Screening: : No symptoms or risks identified at this time. ROS: 18:27 Eyes: Negative for injury, pain, redness, and discharge, ENT: Negative for injury, jr8 pain, and discharge, Neck: Negative for injury, pain, and swelling, Abdomen/GI: Negative for abdominal pain, nausea, vomiting, diarrhea, and constipation, Back: Negative for injury and pain, MS/Extremity: Negative for injury and deformity, Skin: Negative for injury, rash, and discoloration, Neuro: Negative for headache, weakness, numbness, tingling, and seizure. 18:27 Cardiovascular: Positive for chest pain, Negative for edema, orthopnea, palpitations, paroxysmal nocturnal dyspnea. 18:27 Respiratory: Positive for cough, shortness of breath. Exam: 18:27 Eyes: Pupils equal round and reactive to light, extra-ocular motions intact. Lids and jr8 lashes normal. Conjunctiva and sclera are non-icteric and not injected. Cornea within normal limits. Periorbital areas with no swelling, redness, or edema. ENT: Nares patent. No nasal discharge, no septal abnormalities noted. Tympanic membranes are normal and external auditory canals are clear. Oropharynx with no redness, swelling, or masses, exudates, or evidence of obstruction, uvula midline. Mucous membranes moist. Neck: Trachea midline, no thyromegaly or masses palpated, and no cervical lymphadenopathy. Supple, full range of motion without nuchal rigidity, or vertebral point tenderness. No Meningismus. Cardiovascular: Regular rate and rhythm with a normal S1 and S2. No gallops, murmurs, or rubs. Normal PMI, no JVD. No pulse deficits. Respiratory: Lungs have equal breath sounds bilaterally, clear to auscultation and percussion. No rales, rhonchi or wheezes noted. No increased work of breathing, no retractions or nasal flaring. Abdomen/GI: Soft, non-tender, with normal bowel sounds. No distension or tympany. No guarding or rebound. No evidence of tenderness throughout. Back: No spinal tenderness. No costovertebral tenderness. Full range of motion. Skin: Warm, dry with normal turgor. Normal color with no rashes, no lesions, and no evidence of cellulitis. MS/ Extremity: Pulses equal, no cyanosis. Neurovascular intact. Full, normal range of motion. Neuro: Awake and alert, GCS 15, oriented to person, place, time, and situation. Cranial nerves II-XII grossly intact. Motor strength 5/5 in all extremities. Sensory grossly intact. Cerebellar exam normal. Normal gait. 18:27 Chest/axilla: Inspection: normal, Palpation: tenderness, that is mild, of the anterior aspect of right upper chest, anterior aspect of left upper chest and mid-sternal area, that totally reproduces the patient's complaints. Vital Signs: 18:07 BP 115 / 65; Pulse 105; Resp 16; Temp 97.4; Pulse Ox 100% on R/A; Weight 61.23 kg; la1 Height 5 ft. 1 in. (154.94 cm); 19:09 BP 118 / 69; Pulse 81; Resp 17 S; Pulse Ox 99% on R/A; ca1 20:05 BP 110 / 61; Pulse 64; Resp 17 S; Pulse Ox 98% on R/A; ca1 21:16 BP 101 / 59; Pulse 73; Resp 16 S; Pulse Ox 98% on R/A; ca1 18:07 Body Mass Index 25.51 (61.23 kg, 154.94 cm) la1 MDM: 18:09 Patient medically screened. benito 20:53 Data reviewed: vital signs, nurses notes, lab test result(s), EKG, radiologic studies, jr8 plain films. Data interpreted: Pulse oximetry: on room air is 98 %. Interpretation: normal. Counseling: I had a detailed discussion with the patient and/or guardian regarding: the historical points, exam findings, and any diagnostic results supporting the discharge/admit diagnosis, lab results, radiology results, the need for outpatient follow up, a family practitioner, to return to the emergency department if symptoms worsen or persist or if there are any questions or concerns that arise at home. Response to treatment: the patient's symptoms have markedly improved after treatment, and as a result, I will discharge patient. 03/01 18:18 Order name: EKG; Complete Time: 19:51 2 03/01 18:18 Order name: EKG - Nurse/Tech; Complete Time: 18:19 03/01 18:21 Order name: Cardiac monitoring; Complete Time: 18:22 03/01 18:21 Order name: IV Saline Lock; Complete Time: 18:31 03/01 18:21 Order name: Labs collected and sent; Complete Time: 18:31 03/01 18:21 Order name: O2 Per Protocol; Complete Time: 18:22 03/01 18:21 Order name: O2 Sat Monitoring; Complete Time: 18:22 Administered Medications: 18:37 Drug: Ativan 1 mg Route: IVP; Site: right hand; rv 18:38 Drug: TORadol - Ketorolac 15 mg Route: IVP; Site: right hand; rv 20:44 Drug: Potassium Chloride 40 mEq Route: PO; rv Disposition: 03/01/19 21:00 Discharged to Home. Impression: Chest pain, unspecified. - Condition is Stable. - Discharge Instructions: Nonspecific Chest Pain. - Medication Reconciliation Form, Thank You Letter, Antibiotic Education, Prescription Opioid Use, Work release form form. - Follow up: Private Physician; When: 2 - 3 days; Reason: Recheck today's complaints, Continuance of care, Re-evaluation by your physician. - Problem is new. - Symptoms have improved. Signatures: Dispatcher [employer] EDAL Ben Barboza MD MD cha Roszak, Josh, PA PA jr8 Clive Simmons RN RN la1 Carina Spears RN RN tw2 Kelvin Bryant, RN RN rv Acob, Daysi, RN RN ca1 Corrections: (The following items were deleted from the chart) 18:22 18:21 EKG - Nurse/Tech ordered. jr8 tw2 20:15 19:52 Chest Single View+RAD.RAD.BRZ ordered. EDAL EDMS 20:23 19:52 BASIC METABOLIC PANEL+C.LAB.BRZ ordered. EDAL EDMS 20:23 19:52 CBC+H.LAB.BRZ ordered. EDAL EDMS 20:23 19:52 PROBNP+C.LAB.BRZ ordered. EDAL EDMS 20:23 19:52 PROTIME (+INR)+COAG.LAB.BRZ ordered. EDAL EDMS 20:23 19:52 TROPONIN (EMERG DEPT USE ONLY)+C.LAB.BRZ ordered. EDAL EDMS 21:17 21:00 03/01/2019 21:00 Discharged to Home. Impression: Chest pain, unspecified. ca1 Condition is Stable. Forms are Work release form, Medication Reconciliation Form, Thank You Letter, Antibiotic Education, Prescription Opioid Use. Follow up: Private Physician; When: 2 - 3 days; Reason: Recheck today's complaints, Continuance of care, Re-evaluation by your physician. Problem is new. Symptoms have improved. jr8
[2019-03-01 21:39] VITALS: TEMP 97.4
[2019-03-01 21:41] VITALS: O2SAT 98
[2019-03-01 21:43] VITALS: BP 101/59
--- NOTE | 2019-03-02 08:57 | EKG ---
Test Date: 2019-03-01 Test Time: 18:18:17 Machine Stoppage Frequency Checker: TONIA MEASUREMENT RESULTS: Intervals: Rate: 88 NE: 132 QRSD: 86 QT: 338 QTc: 408 [place]: P: 57 NE: 132 QRS: 57 T: -12 INTERPRETIVE STATEMENTS: Normal sinus rhythm Nonspecific T wave abnormality Abnormal ECG Compared to ECG 05/02/2017 13:44:57 No significant changes Electronically Signed On 03-02-19 08:56:26 CDT by Gorge Bradley
== END 2019-03-01 21:17 | disposition home or self-care (01) ==
LOC: ER 17:53
DX: R07.9 Chest pain, unspecified (principal); F17.210 Nicotine dependence, cigarettes, uncomplicated; Z91.040 Latex allergy status; Z91.048 Other nonmedicinal substance allergy status
CPT/HCPCS: 36415; 71045; 80048; 83880; 84484; 85025; 85610; 93005

== ENCOUNTER 2019-05-11 22:41 | Emergency (ER) | payer OTHER, SELFPAY ==
[2019-05-11 23:27] LABS: Urine Blood NEGATIVE (NEG); Urine Glucose NEGATIVE (NEG); Urine Protein NEGATIVE (NEG); Urine pH 5.5 (5.0-7.0)
[2019-05-11 23:52] LABS: Urine Bacteria <20 /HPF (<20); Urine Culture Reflex Order NOT NEEDED; Urine RBC NONE SEEN /HPF (NONE SEEN)
--- NOTE | 2019-05-12 00:04 | EDPHYS ---
Physician Documentation [facility] Name: Camila Soria Age: 29 yrs Sex: Female : 1990 Arrival Date: 05/11/2019 Time: 22:43 Bed 4 Private MD: ED Physician Massimo Jordan HPI: 05/11 23:11 This 29 yrs old Female presents to ER via Ambulatory with complaints of Fever.snw 23:11 The patient reports fever, not measured (subjective). Onset: The symptoms/episode snw began/occurred suddenly, today. Modifying factors: The patient has had contact with sick daughter, dx with viral cough. Associated signs and symptoms: Pertinent negatives: chills, cough, nausea, shortness of breath, sore throat, vomiting. Severity of symptoms: At their worst the symptoms were mild moderate. The patient has experienced a previous episode, last week. 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 - Social history:: Smoking status: Patient uses tobacco products, smokes one-half pack cigarettes per day, Patient uses alcohol, occasionally. - Ebola Screening: : No symptoms or risks identified at this time. ROS: 23:10 Eyes: Negative for injury, pain, redness, and discharge, ENT: Negative for injury, snw pain, and discharge, Neck: Negative for injury, pain, and swelling, Cardiovascular: Negative for chest pain, palpitations, and edema, Respiratory: Negative for shortness of breath, cough, wheezing, and pleuritic chest pain, Abdomen/GI: Negative for abdominal pain, nausea, vomiting, diarrhea, and constipation, Back: Negative for injury and pain, : Negative for injury, bleeding, discharge, and swelling, MS/Extremity: Negative for injury and deformity, Neuro: Negative for headache, weakness, numbness, tingling, and seizure, Psych: Negative for depression, anxiety, suicide ideation, homicidal ideation, and hallucinations. 23:10 Constitutional: Positive for body aches, fever, malaise. 23:10 Skin: Positive for rash. Exam: 23:09 Head/Face: Normocephalic, atraumatic. Eyes: Pupils equal round and reactive to light, snw extra-ocular motions intact. Lids and lashes normal. Conjunctiva and sclera are non-icteric and not injected. Cornea within normal limits. Periorbital areas with no swelling, redness, or edema. ENT: Nares patent. No nasal discharge, no septal abnormalities noted. Tympanic membranes are normal and external auditory canals are clear. Oropharynx with no redness, swelling, or masses, exudates, or evidence of obstruction, uvula midline. Mucous membranes moist. Neck: Trachea midline, no thyromegaly or masses palpated, and no cervical lymphadenopathy. Supple, full range of motion without nuchal rigidity, or vertebral point tenderness. No Meningismus. Chest/axilla: Normal chest wall appearance and motion. Nontender with no deformity. No lesions are appreciated. Cardiovascular: Regular rate and rhythm with a normal S1 and S2. No gallops, murmurs, or rubs. Normal PMI, no JVD. No pulse deficits. Respiratory: Lungs have equal breath sounds bilaterally, clear to auscultation and percussion. No rales, rhonchi or wheezes noted. No increased work of breathing, no retractions or nasal flaring. Abdomen/GI: Soft, non-tender, with normal bowel sounds. No distension or tympany. No guarding or rebound. No evidence of tenderness throughout. Back: No spinal tenderness. No costovertebral tenderness. Full range of motion. Skin: Warm, dry with normal turgor. Normal color with no lesions and no evidence of cellulitis. small punctate erythematous areas to upper chest and hand, no hx of travel or camping MS/ Extremity: Pulses equal, no cyanosis. Neurovascular intact. Full, normal range of motion. Neuro: Awake and alert, GCS 15, oriented to person, place, time, and situation. Cranial nerves II-XII grossly intact. Motor strength 5/5 in all extremities. Sensory grossly intact. Cerebellar exam normal. Normal gait. Psych: Awake, alert, with orientation to person, place and time. Behavior, mood, and affect are within normal limits. 23:09 Constitutional: The patient appears alert, awake, non-toxic. Vital Signs: 23:02 BP 125 / 92; Pulse 74; Resp 16; Temp 98.3; Pulse Ox 100% on R/A; Weight 61.23 kg (R); ak1 Height 5 ft. 1 in. (154.94 cm) (R); Pain 0/10; 23:46 BP 112 / 68; Pulse 67; Resp 16; Pulse Ox 99% on R/A; ak1 23:02 Body Mass Index 25.51 (61.23 kg, 154.94 cm) ak1 MDM: 23:00 Patient medically screened. snw 05/12 00:04 Data reviewed: vital signs, nurses notes. Data interpreted: Pulse oximetry: on room air snw is 99 %. Interpretation: normal. Counseling: I had a detailed discussion with the patient and/or guardian regarding: the historical points, exam findings, and any diagnostic results supporting the discharge/admit diagnosis, lab results, to return to the emergency department if symptoms worsen or persist or if there are any questions or concerns that arise at home. Special discussion: Based on the history and exam findings, there is no indication for further emergent testing or inpatient evaluation. I discussed with the patient/guardian the need to see the primary care provider for further evaluation of the symptoms. 05/11 22:57 Order name: Flu; Complete Time: 23:53 snw 05/11 22:57 Order name: Strep; Complete Time: 23:53 snw 05/11 23:07 Order name: Urine Microscopic Only snw 05/11 23:07 Order name: Urine Microscopic Only; Complete Time: 23:53 EDMS 05/11 23:22 Order name: Urine Dipstick--Ancillary (enter results); Complete Time: 23:33 cm6 05/11 23:22 Order name: Urine --Ancillary (enter results); Complete Time: 23:33 cm6 05/11 23:07 Order name: Urine Dipstick-Ancillary (obtain specimen); Complete Time: 23:11 snw 05/11 23:48 Order name: Throat Culture EDMS Administered Medications: No medications were administered Disposition: 03:12 Co-signature as Attending Physician, Massimo Jordan MD. rn Disposition: 05/12/19 00:03 Discharged to Home. Impression: Acute upper respiratory infection, unspecified, Rash and other nonspecific skin eruption. - Condition is Stable. - Discharge Instructions: Upper Respiratory Infection, Adult, Cool Mist Vaporizer, Rehydration, Adult. - Prescriptions for Zyrtec 10 mg Oral Tablet - take 1 tablet by ORAL route once daily As needed; 20 tablet. Tessalon Perles 100 mg Oral Capsule - take 1 capsule by ORAL route every 8 hours As needed; 15 capsule. - Work release form, Medication Reconciliation Form, Thank You Letter, Antibiotic Education, Prescription Opioid Use form. - Follow up: Private Physician; When: 2 - 3 days; Reason: Recheck today's complaints, Continuance of care, Re-evaluation by your physician. Follow up: Emergency Department; When: As needed; Reason: Worsening of condition. Signatures: Dispatcher [employer] EDMS Margaret Ac, INSIDE ACCOUNT REPRESENTATIVE-C INSIDE ACCOUNT REPRESENTATIVE-Csnw Massimo Jordan MD MD rn Krenek, Amber, RN RN ak1 Corrections: (The following items were deleted from the chart) 00:26 00:03 05/12/2019 00:03 Discharged to Home. Impression: Acute upper respiratory ak1 infection, unspecified; Rash and other nonspecific skin eruption. Condition is Stable. Forms are Medication Reconciliation Form, Thank You Letter, Antibiotic Education, Prescription Opioid Use. Follow up: Private Physician; When: 2 - 3 days; Reason: Recheck today's complaints, Continuance of care, Re-evaluation by your physician. Follow up: Emergency Department; When: As needed; Reason: Worsening of condition. snw
--- NOTE | 2019-05-12 00:04 | ER ---
Nurse's Notes [facility] [place], [place] Name: Camila Soria Age: 29 yrs Sex: Female : 1990 Arrival Date: 05/11/2019 Time: 22:43 Bed 4 Private MD: Diagnosis: Acute upper respiratory infection, unspecified;Rash and other nonspecific skin eruption Presentation: 05/11 23:04 Presenting complaint: Patient states: fever intermittent with headache. pt took advil ak1 at 1550. Transition of care: patient was not received from another setting of care. Onset of symptoms is unknown. Risk Assessment: Do you want to hurt yourself or someone else? Patient reports no desire to harm self or others. Initial Sepsis Screen: Does the patient meet any 2 criteria? No. Patient's initial sepsis screen is negative. Does the patient have a suspected source of infection? No. Patient's initial sepsis screen is negative. Care prior to arrival: None. 23:04 Method Of Arrival: Ambulatory ak1 23:04 Acuity: ANASTASIIA 4 ak1 Triage Assessment: 23:05 General: Appears in no apparent distress. Behavior is calm, cooperative. Pain: Denies ak1 pain. EENT: No signs and/or symptoms were reported regarding the EENT system. Neuro: Level of Consciousness is awake, alert, obeys commands, Oriented to person, place, time, Contour Band Saw Operator Vertical are equal bilaterally Moves all extremities. Full function Gait is steady, Speech is normal. Cardiovascular: No deficits noted. Respiratory: Airway is patent Respiratory effort is even, unlabored. GI: No signs and/or symptoms were reported involving the gastrointestinal system. : No signs and/or symptoms were reported regarding the genitourinary system. Derm: Reports fever intermittent. Musculoskeletal: No signs and/or symptoms reported regarding the musculoskeletal system. 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 - Social history:: Smoking status: Patient uses tobacco products, smokes one-half pack cigarettes per day, Patient uses alcohol, occasionally. - Ebola Screening: : No symptoms or risks identified at this time. Screenin:06 Abuse screen: Denies threats or abuse. Denies injuries from another. Nutritional ak1 screening: No deficits noted. Tuberculosis screening: No symptoms or risk factors identified. Fall Risk None identified. Assessment: 23:46 Reassessment: Patient appears in no apparent distress at this time. No changes from ak1 previously documented assessment. Patient is alert, oriented x 3, equal unlabored respirations, skin warm/dry/pink. 05/12 00:25 Reassessment: Patient appears in no apparent distress at this time. No changes from ak1 previously documented assessment. Patient and/or family updated on plan of care and expected duration. Pain level reassessed. Vital Signs: 05/11 23:02 BP 125 / 92; Pulse 74; Resp 16; Temp 98.3; Pulse Ox 100% on R/A; Weight 61.23 kg (R); ak1 Height 5 ft. 1 in. (154.94 cm) (R); Pain 0/10; 23:46 BP 112 / 68; Pulse 67; Resp 16; Pulse Ox 99% on R/A; ak1 23:02 Body Mass Index 25.51 (61.23 kg, 154.94 cm) ak1 ED Course: 22:43 Patient arrived in ED. cl3 22:54 Margaret [facility]-C [facility]. snw 22:54 Massimo Jordan MD is Attending Physician. snw 22:56 Lourdes Conroy, MAR is Primary Nurse. ak1 23:02 Arm band placed on Patient placed in an exam room, on a stretcher, on pulse oximetry, ak1 Patient notified of wait time. flu/strep. 23:03 Patient has correct armband on for positive identification. Bed in low position. Call ak1 light in reach. Side rails up X 1. Pulse ox on. NIBP on. 23:03 Flu and/or RSV swab sent to lab. ak1 23:04 Triage completed. ak1 23:45 Urine Microscopic Only Sent. ak1 23:47 Door closed. Lights dimmed. Warm blanket given. ak1 05/12 00:25 No provider procedures requiring assistance completed. Patient did not have IV access ak1 during this emergency room visit. Administered Medications: No medications were administered Outcome: 00:03 Discharge ordered by . kanika 00:25 Discharged to home ambulatory, with family. ak1 00:25 Condition: stable 00:25 Discharge instructions given to patient, Instructed on discharge instructions, follow up and referral plans. no drinking with medication, no driving heavy equipment, medication usage, Demonstrated understanding of instructions, follow-up care, medications, Prescriptions given X 2. 00:26 Patient left the ED. ak1 Signatures: Margaret Ac, ELECTRIC BATH ATTENDANT-C ELECTRIC BATH ATTENDANT-Csnw Lourdes Conroy, RN RN ak1 Sara Diaz cl3
== END 2019-05-12 00:26 | disposition home or self-care (01) ==
LOC: ER 22:41
DX: J06.9 Acute upper respiratory infection, unspecified (principal); R21 Rash and other nonspecific skin eruption; Z91.040 Latex allergy status; F17.210 Nicotine dependence, cigarettes, uncomplicated
CPT/HCPCS: 81003; 81015; 81025; 87070; 87081; 87804; 99283

== ENCOUNTER 2019-09-05 19:14 | Emergency (ER) | payer SELFPAY ==
--- OUTSIDE RECORDS SUMMARY | 2019-09-05 19:17 | XMS REPORT ---
:1990 Author Organization [facility] Address [address] [place] [address] Dr. Bae [address] [place] [id number] Care Team Providers Name Role Phone Unavailable Unavailable Unavailable Problems This patient has no known problems. Allergies, Adverse Reactions, Alerts This patient has no known allergies or adverse reactions. Medications This patient has no known medications.
--- OUTSIDE RECORDS SUMMARY | 2019-09-05 19:17 | XMS REPORT | Summary of Care ---
:1990 Author Organization [facility] Address [address] [place] [id number] Care Team Providers Name Role Phone Pcp, Patient Does Not Have A Primary Care Provider Reason for Visit Reason Comments Knee Pain bilateral Back Pain Auth/Cert Status Reason Specialty Diagnoses / Referred By Referred To Procedures Contact Contact [facility] [address] [place] [address] [place] [address] Encounter Details Date Type Department Care Team Description 08/31/2019 Emergency [facility]-Emergency [place]yanne Ann, Acute low back pain without sciatica, unspecified back pain laterality (Primary Dx); Department PAC Chronic pain of both knees [address] [place] [address] [facility] [place] [address] [facility] [address] [place] [address] Allergies Active Allergy Reactions Severity Noted Date Comments Latex Swelling 03/21/2015 First time was a rash, second reaction was anaphylaxis, throat swelled up and went to hospital, requires epi pen on person documented as of this encounter (statuses as of 08/31/2019) Medications Medication Sig Dispensed Refills Start Date End Date Status FLUoxetine (PROZAC) 10 0 07/19/2015 Active mg capsule ibuprofen (MOTRIN) 800 Take 1 tablet by 60 tablet 0 11/17/2015 Active mg tablet mouth every 8 (eight) hours as needed for Pain (scale 1-3), Pain (scale 4-6), Pain (scale 1-3) with oral narcotics, Pain (scale 4-6) with oral narcotics, Alternate with [place] for pain scale 1-3 or Alternate with [place] for pain scale 4-6. acetaminophen-codeine Take 2 tablets by 60 tablet 0 11/17/2015 Active (TYLENOL #3) 300-30 mg mouth every 4 tablet (four) hours as needed for Pain (scale 1-3). promethazine Take 10 mL by 300 mL 0 11/17/2015 Active (PHENERGAN) 6.25 mg/5 mouth every 4 mL solution (four) hours as needed for Nausea and Vomiting (N/V). documented as of this encounter (statuses as of 08/31/2019) Active Problems Problem Noted Date S/P hysterectomy 11/16/2015 OAB (overactive bladder) 09/05/2015 Endometriosis 05/01/2015 Endometriosis determined by laparoscopy 05/01/2015 History of sterilization procedure 04/03/2015 Urge incontinence of urine 04/03/2015 ASCUS with positive high risk HPV 04/03/2015 History of Helicobacter pylori infection 04/03/2015 Dysmenorrhea 04/03/2015 Pelvic pain in female 04/03/2015 Maternal varicella, non-immune 02/24/2013 Bipolar disorder with depression 02/24/2013 Tobacco use disorder 08/27/2012 Heart murmur Overview: H/O when documented as of this encounter (statuses as of 08/31/2019) Resolved Problems Problem Noted Date Resolved Date Rubella immune 02/24/2013 04/03/2015 Breast pain in female 02/24/2013 04/03/2015 Other general counseling and advice for contraceptive 02/24/2013 04/03/2015 management Encounter for routine gynecological examination 02/24/2013 04/03/2015 Overview: ICD10 Diagnosis Term Broadcast Supervisor Utility Thyroid disease 02/24/2013 04/03/2015 Bipolar disorder 08/27/2012 02/24/2013 Induction of Labor 08/11/2012 08/11/2012 Normal spontaneous vaginal delivery 08/11/2012 09/22/2012 Normal spontaneous vaginal delivery 2010 08/11/2012 Multiparity 02/20/2010 08/11/2012 Abnormality of labor, antepartum 02/20/2010 2010 Overview: ICD10 Diagnosis Term Broadcast Supervisor Utility Antepartum genitourinary tract infection 02/20/2010 02/22/2010 Overview: ICD10 Diagnosis Term Broadcast Supervisor Utility Major depressive disorder, recurrent episode, severe 07/16/2005 08/11/2012 Overview: ICD10 Diagnosis Term Broadcast Supervisor Utility Depression 02/24/2013 Overview: Denies s/s of depression. documented as of this encounter (statuses as of 08/31/2019) Immunizations Name Administration Dates Next Due MMR 02/22/2010 Tdap 06/14/2012 documented as of this encounter Social History Tobacco Use Types Packs/Day Years Used Date Current Every Day Smoker Cigarettes 0.5 11 Smokeless Tobacco: Never Used Alcohol Use Drinks/Week oz/Week Comments No 0 Standard drinks or equivalent 0.0 Sex Assigned at Date Recorded Not on file Job Start Date Occupation Industry Not on file Not on file Not on file Travel History Travel Start Travel End No recent travel history available. documented as of this encounter Last Filed Vital Signs Vital Sign Reading Time Taken Comments Blood Pressure 114/65 08/31/2019 10:30 PM FABRICATION OPERATOR Pulse 74 08/31/2019 10:30 PM FABRICATION OPERATOR Temperature 37.2 C (98.9 F) 08/31/2019 9:24 PM FABRICATION OPERATOR Respiratory Rate 16 08/31/2019 10:30 PM FABRICATION OPERATOR Oxygen Saturation 99% 08/31/2019 10:30 PM FABRICATION OPERATOR Inhaled Oxygen Concentration - - Weight 52.2 kg (115 lb) 08/31/2019 9:24 PM FABRICATION OPERATOR Height 154.9 cm (5' 1") 08/31/2019 9:24 PM FABRICATION OPERATOR Body Mass Index 21.73 08/31/2019 9:24 PM FABRICATION OPERATOR documented in this encounter Discharge Instructions AttachmentsThe following attachments cannot be sent through Care Everywhere.RICE (Vietnamese)Back Pain, Relieving (Vietnamese)documented in this encounter Plan of Treatment Health Maintenance Due Date Last Done Comments VARICELLA VACCINES (1 of 2 - 02/22/2004 13+ 2-dose series) PAP SMEAR 02/25/2016 02/24/2013, 04/13/2008, 04/13/2008 INFLUENZA VACCINE (#1) 2019 DTaP,Tdap,and Td Vaccines (2 06/14/2022 06/14/2012 - Td) PNEUMOCOCCAL 0-64 YEARS Aged Out No longer eligible based COMBINED SERIES on patient's age to complete this topic documented as of this encounter Procedures Procedure Name Priority Date/Time Associated Diagnosis Comments POCT TEST IQRA 08/31/2019 9:37 Acute low back pain Results for this PM FABRICATION OPERATOR without sciatica, procedure are in unspecified back the results pain laterality section. URINALYSIS STAT 08/31/2019 9:37 Acute low back pain Results for this PM FABRICATION OPERATOR without sciatica, procedure are in unspecified back the results pain laterality section. documented in this encounter Results POCT TEST (08/31/2019 9:37 PM FABRICATION OPERATOR) POCT PREG negative On board controls acceptable present with C Line POCT PREG LOT # [id number] POCT PREG TEST DATE 2021-02-02 Specimen Urine - URINE, CLEAN CATCH URINALYSIS (08/31/2019 9:37 PM FABRICATION OPERATOR) APPEARANCE Cloudy (A) Clear [facility] COLOR Yellow Yellow [facility] PH 7.0 4.8 - 8.0 [facility] SP GRAVITY 1.020 1.003 - 1.030 [facility] GLU U QUAL Normal Normal [facility] BLOOD 1+ (A) Negative [facility] KETONES Negative Negative [facility] PROTEIN Negative Negative [facility] UROBILIN Normal Normal [facility] BILIRUBIN Negative Negative [facility] NITRITE Negative Negative [facility] LEUK LIZETH Negative Negative [facility] RBC/HPF 6 (H) 0 - 3 HPF [facility] WBC/HPF 2 0 - 5 HPF [facility] BACTERIA Few (A) Negative [facility] MUCOUS Slight (A) Negative LPF [facility] SQ EPITH 9 HPF [facility] Specimen Urine - URINE, CLEAN CATCH Performing Organization Address City/State/Zipcode Phone Number [facility] CLIA: [id number], [address] [place] [address] documented in this encounter Visit Diagnoses Diagnosis Acute low back pain without sciatica, unspecified back pain laterality - Primary Chronic pain of both knees documented in this encounter
[2019-09-05 20:58] LABS: Basophils % 0.6 % (0-1.3); Hematocrit 36.2 % (36.0-45.0); MPV 7.8 fL (7.6-11.3); RBC Red Blood Cell Count 3.84 M/uL (3.86-4.86)
[2019-09-05 21:08] LABS: ALT/SGPT 26 U/L (12-78); AST/SGOT 17 U/L (15-37); Albumin 4.3 g/dL (3.4-5.0); Alkaline Phosphatase 58 U/L (45-117); BUN Blood Urea Nitrogen 12 mg/dL (7-18); Bicarbonate 29 mmol/L (21-32); Bilirubin Direct < 0.1 mg/dL (0-0.2); Bilirubin Total 0.3 mg/dL (0.2-1.0); Glucose Level 94 mg/dL (74-106); Lipase 142 U/L (73-393); Potassium 3.3 mmol/L (3.5-5.1); Protein, Total 7.4 g/dL (6.4-8.2); Sodium Level 143 mmol/L (136-145)
--- NOTE | 2019-09-05 22:18 | EDPHYS ---
Physician Documentation [facility] Name: Camila Soria Age: 29 yrs Sex: Female : 1990 Arrival Date: 09/05/2019 Time: 19:17 Bed 15 Private MD: ED Physician Massimo Jordan HPI: 09/04 20:05 This 29 yrs old Female presents to ER via Ambulatory with complaints of jmm Abdominal Swelling, Breathing Difficulty. 20:05 The patient presents with abdominal pain in the lower abdomen. Onset: The jmm symptoms/episode began/occurred just prior to arrival. The symptoms do not radiate. Associated signs and symptoms: Pertinent negatives: diarrhea, vomiting. The symptoms are described as achy. This is a 29 year old female with a history of anxiety, bipolar, that presents to the ED with complaints of lower abdominal pain and cramping. Patient described pain similar to menstrual cramps. Patient states she noticed her abdomen actively cramping. Denies vomiting, denies diarrhea. . 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 - Social history:: Smoking status: Patient reports the use of cigarette tobacco products, smokes one-half pack cigarettes per day. ROS: 20:05 Constitutional: Negative for fever, chills, and weight loss, Cardiovascular: Negative jmm for chest pain, palpitations, and edema, Respiratory: Negative for shortness of breath, cough, wheezing, and pleuritic chest pain. 20:05 Abdomen/GI: Positive for abdominal pain. 20:05 All other systems are negative. Exam: 20:05 Constitutional: This is a well developed, well nourished patient who is awake, alert, jmm and in no acute distress. Head/Face: atraumatic. Eyes: EOMI, no conjunctival erythema appreciated ENT: Moist Mucus Membranes Neck: Trachea midline, Supple Chest/axilla: Normal chest wall appearance and motion. Cardiovascular: Regular rate and rhythm. No edema appreciated Respiratory: Normal respirations, no respiratory distress appreciated 20:05 Back: Normal ROM Skin: General appearance color normal MS/ Extremity: Moves all extremities, no obvious deformities appreciated, no edema noted to the lower extremities Neuro: Awake and alert, normal gait Psych: Behavior is normal, Mood is normal, Patient is cooperative and pleasant 20:05 Abdomen/GI: Inspection: abdomen appears normal, Bowel sounds: normal, Palpation: soft, mild abdominal tenderness, in all quadrants. Vital Signs: 19:28 BP 122 / 72; Pulse 83; Resp 16 S; Temp 98.3(O); Pulse Ox 100% on R/A; Weight 52.16 kg bb (R); Height 5 ft. 1 in. (154.94 cm) (R); Pain 5/10; 21:30 BP 105 / 65; Pulse 56; Resp 16; Pulse Ox 100% ; wh 22:30 BP 118 / 76; Pulse 56; Resp 18; Pulse Ox 100% on R/A; wh 19:28 Body Mass Index 21.73 (52.16 kg, 154.94 cm) bb MDM: 20:05 Patient medically screened. [facility] 22:16 Data reviewed: vital signs, nurses notes. Counseling: I had a detailed discussion with chinyere the patient and/or guardian regarding: the historical points, exam findings, and any diagnostic results supporting the discharge/admit diagnosis, lab results, radiology results, the need for outpatient follow up, to return to the emergency department if symptoms worsen or persist or if there are any questions or concerns that arise at home. ED course: Patient is alert and non toxic in appearance in the ED. Patient is advised to follow up with GI for further evaluation. patient understood and agrees with the plan of care. . 09/04 20:17 Order name: Basic Metabolic Panel; Complete Time: 21:16 [facility] 09/04 20:17 Order name: CBC with Diff; Complete Time: 21:00 [facility] 09/04 20:17 Order name: Creatinine for Radiology; Complete Time: 21:16 [facility] 09/04 20:17 Order name: Hepatic Function; Complete Time: 21:16 [facility] 09/04 20:17 Order name: Lipase; Complete Time: 21:16 [facility] 09/04 22:23 Order name: Urine Dipstick--Ancillary (enter results); Complete Time: 22:39 mw2 09/04 20:17 Order name: IV Saline Lock; Complete Time: 20:46 [facility] 09/04 20:17 Order name: Labs collected and sent; Complete Time: 20:46 [facility] 09/04 20:17 Order name: CT Abd/Pelvis - IV Contrast Only [facility] 09/04 20:17 Order name: Urine Dipstick-Ancillary (obtain specimen); Complete Time: 22:17 [facility] 09/04 22:23 Order name: Urine --Ancillary (enter results); Complete Time: 22:39 mw2 Administered Medications: No medications were administered Disposition: 09/05 03:19 Co-signature as Attending Physician, Massimo Jordan MD. rn Disposition: 09/05/19 22:17 Discharged to Home. Impression: Generalized abdominal pain. - Condition is Stable. - Discharge Instructions: Abdominal Pain, Adult. - Medication Reconciliation Form, Thank You Letter, Antibiotic Education, Prescription Opioid Use form. - Follow up: Private Physician; When: 2 - 3 days; Reason: Recheck today's complaints, Continuance of care, Re-evaluation by your physician. Signatures: Dispatcher [employer] EDTN Malcolm Mejía PA PA Selina Vitale RN RN Massimo Estrada MD MD rn Habalo, Winsy Corrections: (The following items were deleted from the chart) 09/04 22:53 22:17 09/05/2019 22:17 Discharged to Home. Impression: Generalized abdominal pain. wh Condition is Stable. Forms are Medication Reconciliation Form, Thank You Letter, Antibiotic Education, Prescription Opioid Use. Follow up: Private Physician; When: 2 - 3 days; Reason: Recheck today's complaints, Continuance of care, Re-evaluation by your physician. [facility]
--- NOTE | 2019-09-05 22:18 | ER ---
Nurse's Notes [facility] Name: Camila Soria Age: 29 yrs Sex: Female : 1990 Arrival Date: 09/05/2019 Time: 19:17 Bed 15 Private MD: Diagnosis: Generalized abdominal pain Presentation: 09/04 19:28 Chief complaint: Patient states: she was in the shower tonight and she noticed her bb abdomen swell up into a ball near the umbilicus then move across her abdomen and pulsate symptoms lasted approx 3 minutes, pt states she has had these symptoms in the past when she was but she had a hysterectomy approx 4 years ago. Coronavirus screen: The patient has NOT traveled to [place] in the past 14 days. Proceed with normal triage procedures. Ebola Screen: No symptoms or risks identified at this time. Initial Sepsis Screen: Does the patient meet any 2 criteria? No. Patient's initial sepsis screen is negative. Does the patient have a suspected source of infection? No. Patient's initial sepsis screen is negative. Risk Assessment: Do you want to hurt yourself or someone else? Patient reports no desire to harm self or others. 19:28 Method Of Arrival: Ambulatory bb 19:28 Acuity: ANASTASIIA 4 bb 20:30 Onset of symptoms was September 05, 2019. Triage Assessment: 19:31 General: Appears in no apparent distress. Behavior is calm, cooperative. Neuro: Level bb of Consciousness is awake, alert, obeys commands, Oriented to person, place, time, situation. GI: Abdomen is non-distended. 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 - Social history:: Smoking status: Patient reports the use of cigarette tobacco products, smokes one-half pack cigarettes per day. Screenin:30 Abuse screen: Denies threats or abuse. Denies injuries from another. Nutritional wh screening: No deficits noted. Tuberculosis screening: No symptoms or risk factors identified. Fall Risk None identified. Assessment: 20:30 General: Appears in no apparent distress. Behavior is calm, cooperative, appropriate wh for age. Pain: Denies pain. Neuro: Level of Consciousness is awake, alert, obeys commands, Oriented to person, place, time, situation, Appropriate for age. Cardiovascular: Heart tones S1 S2. Respiratory: Airway is patent Respiratory effort is even, unlabored, Respiratory pattern is regular, symmetrical, Breath sounds are clear bilaterally. GI: Abdomen is flat, non-distended, Bowel sounds present X 4 quads. Abd is soft and non tender X 4 quads. Reports bloating. : No signs and/or symptoms were reported regarding the genitourinary system. EENT: No signs and/or symptoms were reported regarding the EENT system. Derm: Skin is intact, is healthy with good turgor, Skin is pink, warm \T\ dry. normal. Musculoskeletal: Circulation, motion, and sensation intact. 21:30 Reassessment: Patient appears in no apparent distress at this time. No changes from previously documented assessment. Patient and/or family updated on plan of care and expected duration. Pain level reassessed. Patient is alert, oriented x 3, equal unlabored respirations, skin warm/dry/pink. 22:45 Reassessment: Patient appears in no apparent distress at this time. No changes from previously documented assessment. Patient and/or family updated on plan of care and expected duration. Pain level reassessed. Patient is alert, oriented x 3, equal unlabored respirations, skin warm/dry/pink. Vital Signs: 19:28 BP 122 / 72; Pulse 83; Resp 16 S; Temp 98.3(O); Pulse Ox 100% on R/A; Weight 52.16 kg bb (R); Height 5 ft. 1 in. (154.94 cm) (R); Pain 5/10; 21:30 BP 105 / 65; Pulse 56; Resp 16; Pulse Ox 100% ; wh 22:30 BP 118 / 76; Pulse 56; Resp 18; Pulse Ox 100% on R/A; wh 19:28 Body Mass Index 21.73 (52.16 kg, 154.94 cm) jack ED Course: 19:17 Patient arrived in ED. jg7 19:30 Triage completed. bb 19:32 Arm band placed on Patient placed in waiting room, Patient notified of wait time. bb Family accompanied patient. 19:56 Mickail, Malcolm, PA is PHCP. [facility] 19:56 Massimo Jordan MD is Attending Physician. [facility] 20:01 Leda Mcintosh is Primary Nurse. 20:28 Radiology exam delayed due to lab results not completed at this time. (BUN/Creatinine). vm2 20:30 Patient has correct armband on for positive identification. Placed in gown. Bed in low wh position. Call light in reach. Side rails up X 1. Pulse ox on. NIBP on. 20:55 Inserted saline lock: 22 gauge in left antecubital area, using aseptic technique. Blood ds4 collected. Missed attempt(s): 20 gauge in right antecubital area. Bleeding controlled, band aid applied, catheter tip intact. 21:30 CT Abd/Pelvis - IV Contrast Only In Process Unspecified. EDMS 22:52 No provider procedures requiring assistance completed. IV discontinued, intact, wh bleeding controlled, No redness/swelling at site. Administered Medications: No medications were administered Outcome: 22:17 Discharge ordered by MD. [facility] 22:52 Discharged to home ambulatory, with family. 22:52 Condition: stable 22:52 Discharge instructions given to patient, family, Instructed on discharge instructions, follow up and referral plans. POC Demonstrated understanding of instructions, follow-up care, POC 22:53 Patient left the ED. Signatures: Dispatcher [employer] EDMS Malcolm Mejía PA PA Selina Vitale, Juliocesar Burch RN ds4 Araseli Lopez 2 Leda Mcintosh Angela Alvarez jg7
[2019-09-05 22:34] LABS: Urine Blood TRACE (NEG); Urine Glucose NEGATIVE (NEG); Urine Protein NEGATIVE (NEG); Urine Specific Gravity 1.015 (1.005-1.030); Urine pH 8.5 (5.0-7.0)
[2019-09-06 02:03] VITALS: TEMP 98.3; O2SAT 100
[2019-09-06 02:06] VITALS: BP 118/76
--- NOTE | 2019-09-06 11:03 | RAD REPORT ---
EXAM DESCRIPTION: CT - Abdomen Pelvis W Contrast - 09/06/2019 5:30 am CLINICAL HISTORY: Abdominal pain and cramping. TECHNIQUE: CT scan of the abdomen and pelvis was performed with intravenous contrast. 5 mm arterial phase axial images of the abdomen were obtained. 5 mm venous phase axial images of the abdomen and pelvis were obtained along with coronal and sagitta l reformatted images. DOSE OPTIMIZATION: This facility uses dose optimization techniques as appropriate to perform exams, including at least one of the following techniques: 1. Automated exposure control. 2. Adjustment of the mA and/or kV according to patient size (this includes techniques or standardized protocols for targeted exams where dose is matched to the indication/reason for exam, i.e. extremiti es or head). 3. Use of iterative reconstructive technique. INTRAVENOUS CONTRAST: Not documented. COMPARISON: 12/12/2016. FINDINGS: Lung Bases: Normal. Liver: Normal. Spleen: Normal. Pancreas: Normal. Gallbladder: Surgically absent. Adrenal Glands: Normal. Kidneys: Normal. Retroperitoneal Structures: Normal. Bowel Survey: There is increased stool within the ascending colon. The distal ileum is unremarkable. The appendix is unremarkable. Uterus and Adnexa: Absent. Urinary Bladder: Normal. Peritoneal Cavity: Normal. Mesenteric Structures: Normal. Abdominal Wall: No hernia. Bony Structures: No suspicious lesions. IMPRESSION: 1. Increased stool within the ascending colon. Electronically signed by: Vito Pinto MD 09/05/2019 10:06 PM [employer] FEEDER Due to temporary technical issues with the PACS/Fluency reporting system, reports are being signed by the in house radiologist as a courtesy to ensure prompt reporting. The interpreting radiologist is f ully responsible for the content of the report.
== END 2019-09-05 22:53 | disposition home or self-care (01) ==
LOC: ER 19:14
DX: R10.84 Generalized abdominal pain (principal); F17.210 Nicotine dependence, cigarettes, uncomplicated; Z91.040 Latex allergy status; Z91.048 Other nonmedicinal substance allergy status
CPT/HCPCS: 36415; 74177; 80048; 80076; 81003; 81025; 83690; 85025; 99284; Q9967

== ENCOUNTER 2021-11-20 11:45 | Emergency (ER) | payer OTHER, SELFPAY ==
--- OUTSIDE RECORDS SUMMARY | 2021-11-20 11:48 | XMS REPORT | Continuity of Care Document ---
:1990 Author Organization [facility] t Address [address] [place] [address] Care Team Providers Name Role Phone Brandi Hatfield Attending Clinician Brandi VALENTINE Attending Clinician Unavailable Luisa MCCANN Attending Clinician Brandi Almanza MD Attending Clinician Brandi ALMANZA Attending Clinician Unavailable Doctor Unassigned, Name Attending Clinician Unavailable Sasha Mari Attending Clinician Payers Payer Name Policy Type Policy Number Effective Date Expiration Date [facility] [id number] 2015 [facility] MEDICAID 00:00:00 Problems Condition Condition Condition Status Onset Resolution Last Treating Co mments Source Name Details Category Date Date Treatment Clinician Date S/P S/P Disease Active Univers hysterecto hysterecto 5-13 it y of my my 00:00: [place] 00 [facility] OAB OAB Disease Active Univers (overactiv (overactiv 3-02 [place] e bladder[place] bladder[place] [facility] Endometrio Endometrio Disease Active 2014-07 U nivers sis sis 0-27 [place] determined [place] 00 Medical laparoscop laparoscop Br anch y y History of History of Disease Active U nivers sterilizat sterilizat 04-03 it y of ion ion 00:00: [place] procedure procedure 00 [facility] Urge Urge Disease Active Univers incontinen incontinen 04-03 it y of ce of ce of 00:00: [place] urine urine 00 [facility] ASCUS with ASCUS with Disease Active U nivers positive positive 04-03 [place] of high risk high risk 00:[place] HPV HPV 00 [facility] History of History of Disease Active U nivers Helicobact Helicobact 04-03 [place] y of er pylori er pylori [place] 00 [facility] Dysmenorrh Dysmenorrh Disease Active U nivers ea ea 04-03 ity of 00:00: [place] [facility] Pelvic Pelvic Disease Active Univers pain in pain in 04-03 ity of female female 00:00: [place] [facility] Maternal Maternal Disease Active Unive rs varicella, varicella, 02-24 it y of non-immune [place]-immune [place] [facility] Bipolar Bipolar Disease Active Univers disorder disorder 02-24 ity of with with 00:00: [place] depression [facility] Tobacco Disease Active Univers use use 08-27 ity of disorder disorder 00:00: [place] 00 [facility] Heart Heart Disease Active Overview: Univer s murmur murmur H/O when ity of [facility] [place] Allergies, Adverse Reactions, Alerts Allergy Allergy Status Severity Reaction(s) Onset Inactive Treating Comm ents Source Name Type Date Date Clinician LATEX DRUG Active Swelling Univers INGREDI 03-21 ity of 00:00: [place] [facility] Latex Propensi Active Swelling First Univer s ty to 03-21 time was ity of adverse 00:00: a rash, [place] reaction 00 second Medical s reaction Branch was anaphylax is, throat swelled up and went to hospital, requires epi pen on person Social History Social Habit Start Date Stop Date Quantity Comments Source History of tobacco Cigarette Smoker University of use [facility] [place] Exposure to Not sure University SARS-CoV-2 (event) [facility] [place] Cigarettes smoked 2020-09-14 2020-09-14 Univers ity of current (pack per 00:00:00 00:00:00 ) - Reported Branch Cigarette 2020-09-14 2020-09-14 University of pack-years 00:00:00 00:00:00 [facility] [place] Alcohol intake 2020-09-14 2020-09-14 Current University of 00:00:00 00:00:00 non-drinker of [facility] alcohol Branch (finding) Tobacco use and 2020-09-14 2020-09-14 Never used Universit y of exposure 00:00:00 00:00:00 [facility] [place] Sex Ass[birth year] At [birth year] Universit y of 00:00:00 00:00:00 [facility] [place] Smoking Status Start Date Stop Date Source Current every day smoker 2020-09-14 00:00:00 Uni versity of [facility] [place] Medications Ordered Filled Start Stop Current Ordering Indication Dosage Frequency Signature Comments Components Source Medication Medication Date Date Medication? Clinician (SIG) Name Name naproxen Yes [id number] 500mg Take 1 U nivers (NAPROSYN) 3-23 tablet by ity of 500 mg 00:00: mouth 2 [place] tablet 00 (two) Medical times Branch daily with meals. ibuprofen 2020- No 600mg 600 mg, Uni vers (IBU) 09-15-13 Oral, ity of tablet 600 03:30: 02:42 ONCE, 1 Jun as mg 00 :00 dose, Fri Medical 09/14/20 at Branch 2130, IQRA HYDROcodone 2020- No 2{tbl} 2 tablet, Univers -acetaminop 09-1513 Oral, ity of hen (NORCO 03:30: 02:42 ONCE, 1 Jun as 5) 5-325 mg 00 :00 dose, Fri Med ical tablet 2 09/14/20 at [facility] tablet 2130, IQRA ibuprofen Yes [id number] 600mg Take 1 Univers (IBU) 600 3-12 9103 tablet by ity o f mg tablet 00:00: mouth [place] 00 every 6 Medical (six) Branch hours as needed for Pain (scale 4-6). ibuprofen Yes [id number] 600mg Take 1 Univers (IBU) 600 3-12 9103 tablet by ity o f mg tablet 00:00: mouth [place] 00 every 6 Medical (six) Branch hours as needed for Pain (scale 4-6). acetaminoph 2020- No 4647 1{tbl} Take 1 U nivers en-codeine 09-14 03-20 tablet by ity of 300-30 mg 00:00: 04:59 mouth [place] tablet 00 :00 every 4 Medical (four) Branch hours as needed for Pain (scale 7-10) for up to 7 days. Indication s: acute pain magnesium 2020-2020- No 300mL 300 mL, Uni vers citrate 08-31 Oral, ity of solution 07:30: 06:20 ONCE, 1 [place] 300 mL 00 :00 dose, Fri Medical 08/31/20 at Branch 0130, IQRA dicyclomine 2020- No 20mg 20 mg, Uni vers (BENTYL) 08-31 Intramuscu ity of injection 06:45: 05:38 lar, ONCE, [place] 20 mg 00 :00 1 dose, Medical Fri Branch 08/31/20 at 0045, Routine lactulose 2020- No 45mL 45 mL, Unive rs (CEPHULAC) 08-31 Oral, ity of solution 45 06:15: 05:13 ONCE, 1 [place] mL 00 :00 dose, Fri Medical 08/31/20 at Branch 0015, IQRA sodium Yes 5mL 5 mL, Univers chloride 08-31 Intravenou ity o f (NS) 03:27: s, PRN, [place] injection 5 42 Starting Medi elder mL [place] Branch 08/30/20 at 2127, Until Discontinu ed, Routine, IV line flushing docusate 2020-0 Yes [id number] 250mg Take 1 Un nichole sodium 250 2- capsule by ity of mg capsule 00:00: [place] 00 (two) Medical times Branch daily as needed for Constipati on. lactulose 2020-0 Yes [id number] 30mL Take 30 mL Univers 10 gram/15 - by mouth 3 ity of mL oral 00:00: (three) [place] solution 00 times Medical daily as Branch needed for Constipati on or For bowel movement. docusate 2020-0 Yes [id number] 250mg Take 1 Un nichole sodium 250 2-26 capsule by ity of mg capsule 00:00: [place] 00 (two) Medical times Branch daily as needed for Constipati on. lactulose 2020-0 Yes [id number] 30mL Take 30 mL Univers 10 gram/15 -26 by mouth 3 ity of mL oral 00:00: (three) [place] solution 00 times Medical daily as Branch needed for Constipati on or For bowel movement. docusate Yes [id number] 250mg Take 1 Un nichole sodium 250 2-26 capsule by ity of mg capsule 00:00: [place] 00 (two) Medical times Branch daily as needed for Constipati on. lactulose Yes [id number] 30mL Take 30 mL Univers 10 gram/15 2-26 by mouth 3 ity of mL oral 00:00: (three) [place] solution 00 times Medical daily as Branch needed for Constipati on or For bowel movement. promethazin Yes 12.5mg Take 10 mL Univers e 5-14 by mouth ity of (PHENERGAN) 00:00: every 4 Jun as 6.25 mg/5 00 (four) Medical mL solution hours as Bran ch needed for Nausea and Vomiting (N/V). promethazin Yes 12.5mg Take 10 mL Univers e 5-14 by mouth ity of (PHENERGAN) 00:00: every 4 Jun [place] 6.25 mg/5 00 (four) Medical mL solution hours as Bran ch needed for Nausea and Vomiting (N/V). ibuprofen Yes 800mg Take 1 Unive rs (MOTRIN) 5-14 tablet by ity of 800 mg 00:00: mouth [place] tablet 00 every 8 Medical (eight) Branch hours as needed for Pain (scale 1-3), Pain (scale 4-6), Pain (scale 1-3) with oral narcotics, Pain (scale 4-6) with oral narcotics, Alternate with [place] for pain scale 1-3 or Alternate with [place] for pain scale 4-6. acetaminoph Yes 2{tbl} Take 2 Un nichole en-codeine 5-14 tablets by ity of (TYLENOL 00:00: mouth [place] #3) 300-30 00 every 4 Medica l mg tablet (four) Branch hours as needed for Pain (scale 1-3). promethazin Yes 12.5mg Take 10 mL Univers e 5-14 by mouth ity of (PHENERGAN) 00:00: every 4 Jun as 6.25 mg/5 00 (four) Medical mL solution hours as Bran ch needed for Nausea and Vomiting (N/V). ibuprofen Yes 800mg Take 1 Unive rs (MOTRIN) 5-14 tablet by ity of 800 mg 00:00: mouth [place] tablet 00 every 8 Medical (eight) Branch hours as needed for Pain (scale 1-3), Pain (scale 4-6), Pain (scale 1-3) with oral narcotics, Pain (scale 4-6) with oral narcotics, Alternate with [place] for pain scale 1-3 or Alternate with [place] for pain scale 4-6. acetaminoph Yes 2{tbl} Take 2 Un nichole en-codeine 5-14 tablets by ity of (TYLENOL 00:00: mouth [place] #3) 300-30 00 every 4 Medica l mg tablet (four) Branch hours as needed for Pain (scale 1-3). promethazin Yes 12.5mg Take 10 mL Univers e 5-14 by mouth ity of (PHENERGAN) 00:00: every 4 Jun as 6.25 mg/5 00 (four) Medical mL solution hours as Bran ch needed for Nausea and Vomiting (N/V). ibuprofen Yes 800mg Take 1 Unive rs (MOTRIN) 5-14 tablet by ity of 800 mg 00:00: mouth [place] tablet 00 every 8 Medical (eight) Branch hours as needed for Pain (scale 1-3), Pain (scale 4-6), Pain (scale 1-3) with oral narcotics, Pain (scale 4-6) with oral narcotics, Alternate with [place] for pain scale 1-3 or Alternate with [place] for pain scale 4-6. acetaminoph Yes 2{tbl} Take 2 Un nichole en-codeine 5-14 tablets by ity of (TYLENOL 00:00: mouth [place] #3) 300-30 00 every 4 Medica l mg tablet (four) Branch hours as needed for Pain (scale 1-3). promethazin Yes 12.5mg Take 10 mL Univers e 5-14 by mouth ity of (PHENERGAN) 00:00: every 4 Jun as 6.25 mg/5 00 (four) Medical mL solution hours as Bran ch needed for Nausea and Vomiting (N/V). ibuprofen No 800mg Take 1 Univ ers (MOTRIN) 5-14 03-12 tablet by ity o f 800 mg 00:00: 00:00 mouth [place] tablet 00 :00 every 8 Medical (eight) Branch hours as needed for Pain (scale 1-3), Pain (scale 4-6), Pain (scale 1-3) with oral narcotics, Pain (scale 4-6) with oral narcotics, Alternate with [place] for pain scale 1-3 or Alternate with [place] for pain scale 4-6. acetaminoph 1- No 2{tbl} Take 2 U nivers en-codeine 5-14 03-12 tablets by it y of (TYLENOL 00:00: 00:00 mouth [place] #3) 300-30 00 :00 every 4 Medica l mg tablet (four) Branch hours as needed for Pain (scale 1-3). FLUoxetine Yes Univers (PROZAC) 10 1-14 ity of mg capsule 00:00: [place] [facility] FLUoxetine Yes Univers (PROZAC) 10 1-14 ity of mg capsule 00:00: [place] [facility] FLUoxetine Yes Univers (PROZAC) 10 1-14 ity of mg capsule 00:00: [place] [facility] FLUoxetine Yes Univers (PROZAC) 10 1-14 ity of mg capsule 00:00: [place] [facility] FLUoxetine Yes Univers (PROZAC) 10 1-14 ity of mg capsule 00:00: [address] Immunizations Ordered Filled Immunization Date Status Comments Sourc e Immunization Name Name TD 2012-06-14 Completed University of 00:00:00 [facility] [place] TDAP 2012-06-14 Completed University :00: [facility] [place] Tdap 2012-06-14 Completed University of 00:00:00 [facility] [place] TDAP 2012-06-14 Completed University of 00:00:00 [facility] [place] TDAP 2012-06-14 Completed University of 00:00:00 [facility] [place] MMR 2010-02-22 Completed University of 00:00: [facility] [place] MMR 2010-02-22 Completed University of 00:00:00 [facility] [place] MMR 2010-02-22 Completed University of 00:00:00 [facility] [place] MMR 2010-02-22 Completed University of 00:00:00 [facility] [place] MMR 2010-02-22 Completed University of 00:00:00 [facility] [place] Vital Signs Vital Name Observation Time Observation Value Comments Source Systolic blood 2020-09-25 21:29:00 108 mm[Hg] Univer sity of pressure [place] [facility] Diastolic blood 2020-09-25 21:29:00 65 mm[Hg] Unive rsity of pressure [place] [facility] Heart rate 2020-09-25 21:29:00 91 /min Universi ty [facility] [place] [facility] Body temperature 2020-09-25 21:29:00 36.67 Rosario Univ ersity of [place] [facility] Respiratory rate 2020-09-25 21:29:00 14 /min Univ ersity of [place] [facility] Body weight 2020-09-25 21:29:00 61.236 kg Universi ty [facility] [place] [facility] BMI 2020-09-25 21:29:00 25.51 kg/m2 [facility]i [facility] [place] [facility] Oxygen saturation in 2020-09-25 21:29:00 99 /min University of Arterial blood by [place] [employer] elder Pulse oximetry Branch Systolic blood 2020-09-15 01:50:00 115 mm[Hg] Univer sity of pressure [place] [facility] Diastolic blood 2020-09-15 01:50:00 77 mm[Hg] Unive rsity of pressure [place] [facility] Heart rate 2020-09-15 01:50:00 100 /min Universi ty [facility] [place] [facility] Body temperature 2020-09-15 01:50:00 36.61 Rosario Univ ersity [facility] [place] [facility] Respiratory rate 2020-09-15 01:50:00 18 /min Univ ers[facility] [place] [facility] Body weight 2020-09-15 01:50:00 61.236 kg Universi ty [facility] [place] [facility] BMI 2020-09-15 01:50:00 25.51 kg/m2 [facility] [place] [facility] Oxygen saturation in 2020-09-15 01:50:00 98 /min University of Arterial blood by [employer] elder Pulse oximetry Branch Diastolic blood 2020-08-31 06:40:00 76 mm[Hg] Unive rsity of pressure [place] [facility] Heart rate 2020-08-31 06:40:00 68 /min Universi ty [facility] [place] [facility] Respiratory rate 2020-08-31 06:40:00 17 /min Univ ersity [facility] [place] [facility] Oxygen saturation in 2020-08-31 06:40:00 99 /min University of Arterial blood by [facility] Pulse oximetry Branch Systolic blood 2020-08-31 06:40:00 114 mm[Hg] Univer sity of pressure [facility] [place] Body temperature 2020-08-31 03:04:00 36.78 Rosario [facility] ersity [facility] Body weight 2020-08-31 03:04:00 61.236 kg Universi ty [facility] BMI 2020-08-31 03:04:00 25.51 kg/m2 Universi ty [facility] Systolic blood 2019-09-01 04:30:00 114 mm[Hg] Univer sity of [facility] Diastolic blood 2019-09-01 04:30:00 65 mm[Hg] Unive rsity of [facility] Heart rate 2019-09-01 04:30:00 74 /min [facility] Respiratory rate 2019-09-01 04:30:00 16 /min [facility] Oxygen saturation in 2019-09-01 04:30:00 99 /min University of Arterial blood by [facility] Pulse oximetry Branch Body temperature 2019-09-01 03:24:00 37.17 Ros[place] [facility] Body height 2019-09-01 03:24:00 154.9 cm Universi ty [facility] Body weight 2019-09-01 03:24:00 52.164 kg [facility] BMI 2019-09-01 03:24:00 21.73 kg/m2 [facility] Procedures Procedure Date / Time Performed Performing Clinician Sour e XR FOREARM 2 VW LEFT 2020-09-25 23:03:31 Peter Valentine [facility] XR HUMERUS 2 VW LEFT 2020-09-25 23:03:31 Peter Valentine [facility] CONSENT/REFUSAL FOR 2020-09-25 21:25:37 [facility] TREAT[facility] XR HAND 3+ VW LEFT 2020-09-15 03:14:[facility] 2020-09-15 01:46:07 Doctor Unassigned, No [facility] CONSENT/REFUSAL FOR 2020-09-15 01:45:46 Doctor Unassigned, [facility] AND Name [facility] TREATMENT XR ABDOMEN 2 VW 2020-08-31 05:50:04 Calvin Almanza [facility] LIPASE 2020-08-31 03:38:00 Calvin Almanza [facility] COMP. METABOLIC PANEL 2020-08-31 03:38:00 Calvin Almanza [facility] ([id number]) [facility] CBC WITH DIFF 2020-08-31 03:38:00 Calvin Almanza [facility] URINALYSIS 2020-08-31 03:38:00 Calvin Almanza [facility] NOTICE OF PRIVACY 2020-08-31 02:55:56 Doctor Unassigned, No Univ [facility] PRACTICES [facility] CONSENT/REFUSAL FOR 2020-08-31 02:51:44 Doctor Unassigned, [facility] AND Name [facility] TREATMENT URINALYSIS 2019-09-01 03:37:00 Cheyanne Ann [place] o f [facility] [place] POCT TEST 2019-09-01 03:37:00 Cheyanne Ann [facility] Encounters Start End Encounter Admission Attending Care Care Encounter Source Date/Time Date/Time Type Type Clinicians Facility Department ID 2020-09-25 2020-09-25 [facility] [id number] Univers 16:30:00 18:27:00 Peter Mackay [id number] i ty of [place] [id number] [facility] [id number] [address] 2020-09-25 2020-09-25 Emergency [facility] E[facility] [id number] Univers 16:30:00 16:30:00 PETER palomares [facility] 2020-09-14 2020-09-14 Emergency [facility] [id number] Univers 19:52:00 21:57:00 Franko Mackay [id number] i ty of [place] [id number] [facility] [id number] [address] 2020-09-14 2020-09-14 Emergency X RUST ERT [id number] Univers 19:42:00 19:42:00 ity of [facility] [place] 2020-08-30 2020-08-31 Emergency Wayne RUST [id number] Univers 21:07:00 00:53:00 Calvin Mackay [id number] ity of [place] [id number] [facility] [id number] [address] 2020-08-30 2020-08-30 Emergency [facility] [id number] Univers 21:07:00 21:07:[address] [facility] ity [facility] 2020-08-30 2020-08-30 Orders Doctor HUNTER [id number] Univers 00:00:00 00:00:00 Only Unassigned, ANNELISE [id number] ity of [place] [facility] [id number] [facility] [id number] [place] [address] Branch 2019-08-31 2019-08-31 Emergency Cheyanne Ann RUST [id number] Univers 21:12:43 22:57:00 Sasha Mackay [id number] i ty of [place] [id number] [facility] [id number] [address] 2019-08-31 2019-08-31 Emergency X RUST ERT [id number] Univers 21:09:00 21:09:00 ity [facility] Results Test Description Test Time Test Comments Results Result [facility] e Comments XR ABDOMEN 2 VW 2020-08-07 1. ?Moderate Univer sity of 6 distention of the [facility] edical 05:59:50 colon with stool and Bran ch gas consistent withconstipation. No acute obstruction.EXAM: XR ABDOMEN 2 VW HISTORY: Abdominal Distention, Constipation X 1 week. R/o Obbstruction COMPARISON: None available FINDINGS: The lung bases are clear. The cardiac silhouette has normal volume. Nopleural effusion. Cholecystectomy clips noted.The bowel gas distribution is not obstructed. The colon is moderatedistended with stool and gas consistent with constipation.No abnormal calcifications.Bones are unremarkable. [facility], Radiant Results Inft User - 08/31/2020 12:00 AM CSTEXAM: XR ABDOMEN 2 VWHISTORY: Abdominal Distention, Constipation X 1 week. R/o Obbstruction COMPARISON: None availableFINDINGS:The lung bases are clear. The cardiac silhouette has normal volume. Nopleural effusion.Cholecystect fransisco clips noted.The bowel gas distribution is not obstructed. The colon is moderatedistended with stool and gas consistent with constipation.No abnormal calcifications.Bones are unremarkable.IMPRESSI ON1. Moderate distention of the colon with stool and gas consistent withconstipation. No acute obstruction. Complete Metabolic Panel 2020-08-31 04:54:00 Test Item Value Reference Range Interpretation Comme nts NA (test code = 6614813874) 143 mmol/L 135-145 K (test code = 4640136520) 3.7 mmol/L 3.5-5 CL (test code = 7403001904) 106 mmol/L 98-108 CO2 TOTAL (test code = 4956401548) 29 mmol/L 23-31 AGAP (test code = 5878620043) 2-16 BUN (test code = 9417633945) 22 mg/dL 7-23 GLUCOSE (test code = 6488068063) 79 mg/dL 70-110 CREATININE (test code = 0.75 mg/dL 0.5-1.04 2006784707) TOTAL BILI (test code = 0.4 mg/dL 0.1-1.3 0024894414) CALCIUM (test code = 9847817826) 9.2 mg/dL 8.6-10.6 T PROTEIN (test code = 2287504972) 7.0 g/dL 6.3-8.2 ALBUMIN (test code = 0909803128) 4.6 g/dL 3.5-5 ALK PHOS (test code = 1783335945) 47 U/L 34-122 ALTv (test code = 1742-6) 47 U/L 5-35 H AST(SGOT) (test code = 2236826690) 40 U/L 13-40 eGFR Calculation (Non- mL/min/1.73m2 Australian) (test code = 1861231036) eGFR Calculation ( mL/min/1.73m2 [place]) (test code = 5122539051) WILLIE (test code = WILLIE) Association of Glomerular Filtration Rate (GFR) and Staging of Kidney Disease* + +-------- + ------+| GFR (mL/min/1.73 m2) ?| With Kidney Damage ?| ?Without Kidney Damage+ +-- + +| ?>90 ?| ?Stage one ?| ? Normal ?+ +------- + -------+| ?60-89 ?| ?Stage two ?| ? Decreased GFR ? + +-------- + ------+| ?30-59 ?| ?Stage three ?| ? Stage three ? + +-------- + ------+| ?15-29 ?| ?Stage four ? | ? Stage four ?+ +------- + -------+| ?<15 (or dialysis) ? ?| ?Stage five ? | ? Stage five ?+ +------- + -------+ *Each stage assumes the associated GFR level has been in effect for at least three months. ?Stages 1 to 5, with or without kidney disease, indicate chronic kidney disease. Notes: Determination of stages one and two (with eGFR >59mL/min/1.73 m2) requires estimation of kidney damage for at least three months as defined by structural or functional abnormalities of the kidney, manifested by either:Pathological abnormalities or Markers of kidney damage (including abnormalities in the composition of the blood or urine or abnormalities in imaging tests). Lab Interpretation (test code = Abnormal 87156-6) [facility] [id number] 04:54:00 Test Item Value Reference Range Interpretation Comments LIPASE (test code = 1102783622) <10 0-220 Lab Interpretation (test code = Normal 64397-5) [facility] HospitalUrinalysis2021-02-26 04:32:00 Test Item Value Reference Range Interpretation Comments APPEARANCE (test code = Cloudy Clear A 6627769743) COLOR (test code = Yellow Yellow 4293768967) PH (test code = 4.8-8.0 4622931792) SP GRAVITY (test code = 1.003-1.030 6051878756) GLU U QUAL (test code = Normal Normal 3599593324) BLOOD (test code = Negative Negative 2824904705) KETONES (test code = Negative Negative 4387069635) PROTEIN (test code = Negative Negative 2887-8) UROBILIN (test code = Normal Normal 6611850569) BILIRUBIN (test code = Negative Negative 0394953584) NITRITE (test code = Negative Negative 7931620930) LEUK LIZETH (test code = Negative Negative 5653484233) RBC/HPF (test code = See_Comment [Autom ated message] 3471036183) The system [employer] generated this result transmitted ref erence range: 0 - 3 HP F. The reference range was not used to int erpret this result as normal/abnormal . WBC/HPF (test code = <1 See_Comment [Autom ated message] 1059519065) The system [employer] generated this result transmitted ref erence range: 0 - 5 HP F. The reference range was not used to int erpret this result as normal/abnormal . BACTERIA (test code = Few Negative A 3433027966) AMORPHOUS (test code = Rare Rare HPF 0513182244) SQ EPITH (test code = HPF 8334114648) Lab Interpretation (test Abnormal code = 74229-6) General acute hospital with [id number] 04:11:00 Test Item Value Reference Range Interpretation Comments WBC (test code = See_Comment [Automated 2990-2) message] The sy stem which generated this result transmitted reference range : 4.30 - 11.10 10*3/?L. The reference range was not used to interpret this result as normal/abnormal . RBC (test code = See_Comment L [Automated 139-8) message] The sy stem which generated this result transmitted reference range : 3.93 - 5.25 10*6/?L. The reference range was not used to interpret this result as normal/abnormal . HGB (test code = 12.1 g/dL 11.6-15 718-7) HCT (test code = 36.2 % 35.7-45.2 4544-3) MCV (test code = 95.8 fL 80.6-95.5 H 787-2) MCH (test code = 32.0 pg 25.9-32.8 785-6) MCHC (test code = 33.4 g/dL 31.6-35.1 786-4) RDW-SD (test code = 44.9 fL 39-49.9 20225-8) RDW-CV (test code = 12.7 % 12-15.5 788-0) PLT (test code = See_Comment [Automated 777-3) message] The sy stem which generated this result transmitted reference range : 166 - 358 10*3/ ?L. The reference r gildardo was not used to interpret this result as normal/abnormal . MPV (test code = 9.3 fL 9.5-12.9 L 68209-8) NRBC/100 WBC (test See_Comment [Automat ed code = 6128416838) message] The system which generated this result transmitted reference range : 0.0 - 10.0 /100 WBCs. The refer ence range was not u sed to interpret th is result as normal/abnormal . NRBC x10^3 (test code <0.01 See_Comment [Auto mated = 6564016038) message] The s ystem which generated this result transmitted reference range : 10*3/?L. The reference range was not used to interpret this result as normal/abnormal . GRAN MAT (NEUT) % 49.2 % (test code = 770-8) IMM GRAN % (test code 0.20 % = 5890358117) LYMPH % (test code = 40.4 % 736-9) MONO % (test code = 7.6 % 5905-5) EOS % (test code = 1.9 % 713-8) BASO % (test code = 0.7 % 706-2) GRAN MAT x10^3(ANC) 2.78 10*3/uL 1.88-7.09 (test code = 9855239226) IMM GRAN x10^3 (test 0.01 10*3/uL 0-0.06 code = 8175860096) LYMPH x10^3 (test code 2.28 10*3/uL 1.32-3.29 = 731-0) MONO x10^3 (test code 0.43 10*3/uL 0.33-0.92 = 742-7) EOS x10^3 (test code = 0.11 10*3/uL 0.03-0.39 711-2) BASO x10^3 (test code 0.04 10*3/uL 0.01-0.07 = 704-7) Lab Interpretation Abnormal (test code = 90562-0) [facility] Test Item Value Reference Range Interpretation Comments APPEARANCE (test code = Cloudy Clear A 2154151541) COLOR (test code = Yellow Yellow 1786215270) PH (test code = 4.8-8.0 7780616152) SP GRAVITY (test code = 1.003-1.030 8593145425) GLU U QUAL (test code = Normal Normal 6371019469) BLOOD (test code = 1+ Negative A 0546714399) KETONES (test code = Negative Negative 3140600069) PROTEIN (test code = Negative Negative 2887-8) UROBILIN (test code = Normal Normal 5779921182) BILIRUBIN (test code = Negative Negative 4947826630) NITRITE (test code = Negative Negative 5529655327) LEUK LIZETH (test code = Negative Negative 1382567935) RBC/HPF (test code = See_Comment H [Autom ated message] 9019629353) The system [employer] generated this result transmitted ref erence range: 0 - 3 HP F. The reference range was not used to int erpret this result as normal/abnormal . WBC/HPF (test code = See_Comment [Autom ated message] 8335412684) The system [employer] generated this result transmitted ref erence range: 0 - 5 HP F. The reference range was not used to int erpret this result as normal/abnormal . BACTERIA (test code = Few Negative A 0499691659) MUCOUS (test code = Slight Negative LPF A 8192424233) SQ EPITH (test code = HPF 9858289945) Lab Interpretation (test Abnormal code = 77192-5) [id number] 03:37:00 Test Item Value Reference Range Interpretation Comments POCT PREG (test code = 1605) negative On board controls acceptable with present C Line (test code = 3574) POCT PREG LOT # (test code = 3575) [id number] POCT PREG TEST DATE (test 2021-02-02 code = 3576) Lab Interpretation (test code = Normal 37711-2) [facility]"
[2021-11-20 13:08] LABS: Absolute Lymphocytes (CBC) 1.5 K/uL (0.7-4.9); Hematocrit 36.6 % (36.0-45.0); Lymphocytes % 26.1 % (15.3-44.8); RBC Red Blood Cell Count 3.92 M/uL (3.86-4.86)
[2021-11-20 13:12] LABS: Protime INR 1.12
--- NOTE | 2021-11-20 13:21 | RAD REPORT ---
EXAM DESCRIPTION: RAD - Chest Single View - 11/20/2021 1:14 pm CLINICAL HISTORY: SOB COMPARISON: Chest Single View dated 03/01/2019; CHEST PA AND LAT 2 VIEW dated 06/25/2015; CHEST SINGL E VIEW dated 09/30/2010; ABDOMEN ACUTE SERIES dated 01/09/2003 FINDINGS: Lines: None. Lungs: No evidence of edema or pneumonia. Pleural: No significant pleural effusions or pneumothorax. Cardiac: The heart size is within normal limits. Bones: No acute fractures. Other: IMPRESSION: No acute cardiopulmonary disease.
[2021-11-20 15:04] LABS: ALT/SGPT 36 U/L (12-78); Albumin 4.3 g/dL (3.4-5.0); Alkaline Phosphatase 54 U/L (45-117); BUN Blood Urea Nitrogen 12 mg/dL (7-18); Bicarbonate 25 mmol/L (21-32); Bilirubin Total 0.3 mg/dL (0.2-1.0); Glomerular Filtration Rate 123 ml/min (=/>90); Glucose Level 94 mg/dL (74-106); NT PRO-BNP 109 pg/mL (<125); Protein, Total 7.2 g/dL (6.4-8.2); Sodium Level 140 mmol/L (136-145)
[2021-11-20 15:08] LABS: AST/SGOT 25 U/L (15-37); Bilirubin Direct < 0.1 mg/dL (0-0.2); Magnesium 2.2 mg/dL (1.8-2.4); Potassium 3.9 mmol/L (3.5-5.1); Troponin High Sensitivity < 3.0 pg/mL (<58.9)
--- NOTE | 2021-11-20 15:49 | EDPHYS ---
Physician Documentation [facility] Name: Camila Nieto Age: 31 yrs Sex: Female : 1990 Arrival Date: 11/20/2021 Time: 11:48 Bed 5 Private MD: Tae Zambrano E ED Physician Aldo King HPI: 11/20 12:13 This 31 yrs old Female presents to ER via Ambulatory with complaints of Shortness Of jmm Breath, lightheaded, side of lips blue. 12:13 Patient complains of sob, palpitations, lips appear blue. Advised by pcp to get checked jmm out. Appears non toxic in the ED. . 12:13 The patient has shortness of breath at rest. Onset: The symptoms/episode began/occurred jmm gradually. Duration: The symptoms are continuous. The patient's shortness of breath is aggravated by nothing, is alleviated by nothing. Associated signs and symptoms: Pertinent positives: palpitations. It is unknown whether or not the patient has had similar symptoms in the past. 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 - Social history:: Smoking status: Patient reports the use of cigarette tobacco products, smokes one-half pack cigarettes per day. ROS: 12:13 Constitutional: Negative for fever, chills, and weight loss. jmm 12:13 Cardiovascular: Positive for palpitations. 12:13 Respiratory: Positive for shortness of breath. 12:13 All other systems are negative. Exam: 12:13 Constitutional: This is a well developed, well nourished patient who is awake, alert, jmm and in no acute distress. Head/Face: atraumatic. Eyes: EOMI, no conjunctival erythema appreciated ENT: Moist Mucus Membranes Neck: Trachea midline, Supple Chest/axilla: Normal chest wall appearance and motion. Cardiovascular: Regular rate and rhythm. No edema appreciated Respiratory: Normal respirations, no respiratory distress appreciated Abdomen/GI: Non distended, soft Back: Normal ROM Skin: General appearance color normal MS/ Extremity: Moves all extremities, no obvious deformities appreciated, no edema noted to the lower extremities Neuro: Awake and alert Psych: Behavior is normal, Mood is normal, Patient is cooperative and pleasant Vital Signs: 12:15 BP 123 / 72; Pulse 81; Resp 17; Temp 98.3; Pulse Ox 100% ; Weight 61.23 kg; Height 5 ap3 ft. 1 in. (154.94 cm); 12:15 Body Mass Index 25.51 (61.23 kg, 154.94 cm) ap3 MDM: 12:13 Patient medically screened. [facility] 15:46 Data reviewed: vital signs, nurses notes. Counseling: I had a detailed discussion with [facility] the patient and/or guardian regarding: the historical points, exam findings, and any diagnostic results supporting the discharge/admit diagnosis, lab results, radiology results, the need for outpatient follow up, to return to the emergency department if symptoms worsen or persist or if there are any questions or concerns that arise at home. ED course: Patient is alert and non toxic in appearance in the ED. No signs of resp distress. Patient advised to follow up with pcp and otherwise given strict return precautions. . 11/20 12:15 Order name: Basic Metabolic Panel; Complete Time: 15: [facility] 11/20 12:15 Order name: CBC with Diff; Complete Time: 13: [facility] 11/20 12:15 Order name: D-Dimer; Complete Time: 13: [facility] 11/20 12:15 Order name: LFT's; Complete Time: 15: [facility] 11/20 12:15 Order name: Magnesium; Complete Time: 15: [facility] 11/20 12:15 Order name: NT PRO-BNP; Complete Time: 15: [facility] 11/20 12:15 Order name: PT-INR; Complete Time: 13:30 [facility] 11/20 12:15 Order name: Troponin HS; Complete Time: 15: [facility] 11/20 12:15 Order name: XRAY Chest (1 view); Complete Time: 13:30 [facility] 11/20 12:15 Order name: EKG; Complete Time: 12:16 [facility] 11/20 12:15 Order name: Cardiac monitoring [facility] 11/20 12:15 Order name: EKG - Nurse/Tech [facility] 11/20 12:15 Order name: IV Saline Lock; Complete Time: 12:55 [facility] 11/20 12:15 Order name: Labs collected and sent; Complete Time: 12:55 [facility] 11/20 12:15 Order name: O2 Per Protocol [facility] 11/20 12:15 Order name: O2 Sat Monitoring [facility] 11/20 13:08 Order name: Labs - recollect needed: recollect c7 bd Administered Medications: No medications were administered Disposition: 16:10 Co-signature as Attending Physician, Aldo King DO I was immediately available on-site ms3 in the Emergency Department for consultation in the care of the patient.. Disposition Summary: 11/20/21 15:49 Discharge Ordered Location: Home [facility] Condition: Stable [facility] Diagnosis - Dyspnea [facility] Followup: jmm - With: Private Physician - When: 2 - 3 days - Reason: Recheck today's complaints, Continuance of care, Re-evaluation by your physician Discharge Instructions: - Discharge Summary Sheet jmm - Shortness of Breath, Adult jm Forms: - Medication Reconciliation Form [facility] - Thank You Letter [facility] - Antibiotic Education [facility] - Prescription Opioid Use [facility] Signatures: Dispatcher [employer] EDMS Ebony Sampson Joel, PA PA jmm Citlali Gracia, RN RN ap3 Aldo King DO DO ms3
--- NOTE | 2021-11-20 15:49 | ER ---
Nurse's Notes [facility] Name: Camila Nieto Age: 31 yrs Sex: Female : 1990 Arrival Date: 11/20/2021 Time: 11:48 Bed 5 Private MD: Tae Zambrano E Diagnosis: Dyspnea Presentation: 11/20 12:15 Chief complaint: Patient states: she has been experiencing shortness of breath for a ap3 few days now. patient reports that she noticed a blue color around her mouth this morning, and when she called to get an appointment with her PCP she was informed to come to the ED. Patient also reports a heavy feeling in her chest, and right above her belly button. Coronavirus screen: Client presents with at least one sign or symptom that may indicate coronavirus-19. Ebola Screen: No symptoms or risks identified at this time. Initial Sepsis Screen: Does the patient meet any 2 criteria? No. Patient's initial sepsis screen is negative. Does the patient have a suspected source of infection? No. Patient's initial sepsis screen is negative. Risk Assessment: Do you want to hurt yourself or someone else? Patient reports no desire to harm self or others. Onset of symptoms was November 18, 2021. 12:15 Method Of Arrival: Ambulatory ap3 12:15 Acuity: ANASTASIIA 3 ap3 Triage Assessment: 12:19 General: Appears in no apparent distress. uncomfortable, Behavior is calm, cooperative, ap3 appropriate for age. Pain: Complains of pain in chest and abdomen Quality of pain is described as heavy, pressure. Neuro: Level of Consciousness is awake, alert, obeys commands, Oriented to person, place, time, situation, Appropriate for age Gait is steady, Speech is normal. Cardiovascular: Patient's skin is warm and dry. Respiratory: Reports shortness of breath Airway is patent Respiratory effort is even, unlabored, Onset: The symptoms/episode began/occurred gradually, the patient has mild shortness of breath. 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 - Social history:: Smoking status: Patient reports the use of cigarette tobacco products, smokes one-half pack cigarettes per day. Screenin:20 Abuse screen: Denies threats or abuse. Nutritional screening: No deficits noted. ap3 Tuberculosis screening: No symptoms or risk factors identified. Fall Risk None identified. Assessment: 15:59 General: Appears in no apparent distress. comfortable, Behavior is cooperative. Neuro: ww Level of Consciousness is awake, alert, obeys commands, Oriented to person, place, time, situation, Moves all extremities. Gait is steady, Speech is normal. Cardiovascular: Capillary refill is > 3 seconds Patient's skin is warm and dry. Rhythm is regular. Respiratory: Airway is patent Respiratory effort is even, unlabored, Respiratory pattern is regular, symmetrical. Derm: Skin is intact, is healthy with good turgor. Vital Signs: 12:15 BP 123 / 72; Pulse 81; Resp 17; Temp 98.3; Pulse Ox 100% ; Weight 61.23 kg; Height 5 ap3 ft. 1 in. (154.94 cm); 12:15 Body Mass Index 25.51 (61.23 kg, 154.94 cm) ap3 ED Course: 11:48 Patient arrived in ED. am2 11:48 Tae Zambrano MD is Private Physician. am2 12:18 Triage completed. ap3 12:20 Arm band placed on left wrist. ap3 12:21 EKG done, by ED staff. ap3 12:45 Malcolm Mejía PA is PHCP. jmm 12:45 Aldo King DO is Attending Physician. m 12:54 Inserted saline lock: 20 gauge in left antecubital area, using aseptic technique. Blood zm collected. 12:55 Basic Metabolic Panel Sent. zm 12:55 CBC with Diff Sent. zm 12:55 D-Dimer Sent. zm 12:55 LFT's Sent. zm 12:55 Magnesium Sent. zm 12:55 NT PRO-BNP Sent. zm 12:55 PT-INR Sent. zm 12:55 Troponin HS Sent. zm 13:16 XRAY Chest (1 view) In Process Unspecified. EDMS 15:59 Patient has correct armband on for positive identification. ww 15:59 No provider procedures requiring assistance completed. IV discontinued, bleeding ww controlled, No redness/swelling at site. Pressure dressing applied. Administered Medications: No medications were administered Medication: 12:20 VIS not applicable for this client. ap3 Outcome: 15:49 Discharge ordered by . chinyere 15:59 Discharged to home ambulatory. ww 15:59 Condition: stable 15:59 Discharge instructions given to patient, Instructed on discharge instructions, follow up and referral plans. safety practices, Demonstrated understanding of instructions, follow-up care. 16:00 Patient left the ED. ww Signatures: Dispatcher [employer] EDMS Malcolm Mejía PA PA jmm Moreno, Amanda am2 Citlali Gracia, RN RN ap3 Michelle Berry, MAR RN ww Saundra Melendez
[2021-11-20 16:16] VITALS: BP 123/72; TEMP 98.3; O2SAT 100
--- NOTE | 2021-11-21 07:39 | EKG ---
Test Date: 2021-11-20 Test Time: 12:17:12 Vocational Services Specialist: HAN MEASUREMENT RESULTS: Intervals: Rate: 76 TN: 144 QRSD: 88 QT: 366 QTc: 411 [place]: P: 75 TN: 144 QRS: 82 T: 17 INTERPRETIVE STATEMENTS: Normal sinus rhythm Normal ECG No previous ECG available for comparison Electronically Signed On 11-21-21 07:37:09 CDT by Abhijit Oswald
== END 2021-11-20 16:00 | disposition home or self-care (01) ==
LOC: ER 11:45
DX: R06.00 Dyspnea, unspecified (principal); F17.210 Nicotine dependence, cigarettes, uncomplicated; Z91.040 Latex allergy status; Z91.048 Other nonmedicinal substance allergy status
CPT/HCPCS: 36415; 71045; 80048; 80076; 83735; 83880; 84484; 85025; 85379; 85610; 93005; 99284

== ENCOUNTER 2023-10-18 10:33 | Emergency (ER) | payer OTHER ==
--- OUTSIDE RECORDS SUMMARY | 2023-10-18 10:36 | XMS REPORT | Continuity of Care Document ---
Author Name Unknown Address [address] [facility] [place] [address] [facility] Address [address] [facility] [place] [address] Care Team Providers Care Security Tester Name Role Phone [phone] Primary Care Physician Unavailab le GC_GCBZW_Cedric_S Attending Clinician Unavaila ble Radiology Attending Clinician Unavailable RADIOLOGY Attending Clinician Unavailable Peter Hatfield Attending Clinician PETER VALENTINE Attending Clinician Unavailable Franko Dillon Attending Clinician Cynthia Almanza MD Attending Clinician [phone] CYNTHIA ALMANZA Attending Clinician Unavailable Doctor Unassigned, Rosenberg Attending Clinician U Cheyanne Mariee Attending Clinician [phone] ELIZABETH_GCBZW_Cedric_S Admitting Clinician Gea juan Payers Payer Name Policy Type Policy Number Effective Date Expirati on Date Source [facility] MEDICAID [id number] 2015 00:00:00 Problems Condition Name Condition Details Condition Category Status Onset Date Resolution Date Last Treatment Date Treating Clinician Comments Source S/P hysterecto my S/P hysterecto my Disease Active 11-15 00:00: 00 [facility] OAB (overactiv e bladder) OAB (overactiv e bladder) Disease Active 09-04 00:00: 00 [facility] Endometrio sis determined by laparoscop y Endometrio sis determined by laparoscop y Disease Active 2014-07 00:00: 00 [facility] History of sterilizat ion procedure History of sterilizat ion procedure Disease [facility] 04-03 00:00: 00 [facility] Urge incontinen ce of urine Urge incontinen ce of urine Disease Active 04-03 00:00: 00 [facility] 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 Disease [facility] 04-03 00:00: 00 [facility] History of Helicobact er pylori infection History of Helicobact er pylori infection Disease Active 04-03 00:00: 00 [facility] Dysmenorrh ea Dysmenorrh ea Disease [facility] 04-03 00:00: 00 [facility] Pelvic pain in female Pelvic pain in female Disease [facility] 04-03 00:00: 00 [facility] Maternal varicella, non-immune Maternal varicella, non-immune Disease Active 02-24 00:00: 00 [facility] Bipolar disorder with depression Bipolar disorder with depression Disease Active 02-24 00:00: 00 [facility] Tobacco use disorder Tobacco use disorder Disease [facility] 08-27 00:00: 00 [facility] Heart murmur Heart murmur Disease Active Overview: Formattin g of this note might be different from the original. H/O when [facility] Allergies, Adverse Reactions, Alerts Allergy Name Allergy Type Status Severity Reaction(s) Onset Date Inactive Date Treating Clinician Comments Source [employer] INGREDI Active Swelling 03-21 00:00: 00 [facility] Latex Propensi ty to adverse reaction s Active Swelling 03-21 00:00: 00 First time was a rash, second reaction was anaphylax is, throat swelled up and went to hospital, requires epi pen on person [facility] Social History Social Habit Start Date Stop Date Quantity Comments Source History of tobacco use Cigarette Smoker [facility] to SARS-CoV-2 [facility]event[facility] 2022-11-13 00:00:00 2022-11-13 00:00:00 0 /d [facility] Cigarettes smoked current (pack per day) - Reported 2015-04-12 00:00:00 2015-04-12 00:00:00 [facility] Cigarette pack-years 2015-04-12 00:00:00 2015-04-12 00:00:00 [facility] Tobacco use and exposure 2015-04-12 00:00:00 2015-04-12 00:00:00 Smokeless tobacco non-user [facility] Sex Assigned At 1990 00:00:00 1990 00:00:00 [facility] Smoking Status Start Date Stop Date Source Smokes tobacco daily 2015-04-12 00:00:00 [facility] Medications Ordered Medication Name Filled Medication Name Start Date Stop Date Current Medication? Ordering Clinician Indication Dosage Frequency Signature (SIG) Comments Components Source naproxen (NAPROSYN) 500 mg tablet 09-25 00:00: 00 Yes [id number] 500mg Take 1 tablet by mouth 2 (two) times daily with meals. [facility] ibuprofen (IBU) tablet 600 mg 09-15 03:30: 00 09-15 02:42 :00 No 600mg 600 mg, Oral, ONCE, 1 dose, 09/14/20 at 2130, [facility] HYDROcodone -acetaminop hen (NORCO 5) 5-325 mg tablet 2 tablet 09-15 03:30: 00 09-15 02:42 :00 No 2{tbl} 2 tablet, Oral, ONCE, 1 dose, 09/14/20 at 2130, [facility] ibuprofen (IBU) 600 mg tablet 09-14 00:00: 00 Yes [id number] 9103 600mg Take 1 tablet by mouth every 6 (six) hours as needed for Pain (scale 4-6). [facility] acetaminoph en-codeine 300-30 mg tablet 09-14 00:00: 00 09-22 04:59 :00 No [id number] 1{tbl} Take 1 tablet by mouth every 4 (four) hours as needed for Pain (scale 7-10) for up to 7 days. Indication s: acute pain [facility] magnesium citrate solution 300 mL 08-31 07:30: 00 08-31 06:20 :00 No 300mL 300 mL, Oral, ONCE, 1 dose, Thu08/31/20 at 0130, IQRA [facility] dicyclomine (BENTYL) injection 20 mg 08-31 06:45: 00 08-31 05:38 :00 No 20mg 20 mg, Intramuscu lar, ONCE, 1 dose, Thu08/31/20 at 0045, Routine [facility] lactulose (CEPHULAC) solution 45 mL 08-31 06:15: 00 08-31 05:13 :00 No 45mL 45 mL, Oral, ONCE, 1 dose, 08/31/20 at 0015, IQRA [facility] sodium chloride (NS) injection 5 mL 08-31 03:27: 42 Yes 5mL 5 mL, Intravenou s, PRN, Starting Hailey 08/30/20 at 2127, Until Discontinu ed, Routine, IV line flushing [facility] lactulose 10 gram/15 mL oral solution 08-31 00:00: 00 Yes [id number] 30mL Take 30 mL by mouth 3 (three) times daily as needed for Constipati on or For bowel movement. [facility] docusate sodium 250 mg capsule 08-31 00:00: 00 Yes [id number] 250mg Take 1 capsule by mouth 2 (two) times daily as needed for Constipati on. [facility] promethazin e (PHENERGAN) 6.25 mg/5 mL solution 11-16 00:00: 00 Yes 12.5mg Take 10 mL by mouth every 4 (four) hours as needed for Nausea and Vomiting (N/V). [facility] ibuprofen (MOTRIN) 800 mg tablet 11-16 00:00: 00 09-14 00:00 :00 No 800mg Take 1 tablet by mouth every 8 (eight) hours as needed for Pain (scale 1-3), Pain (scale 4-6), Pain (scale 1-3) with oral narcotics, Pain (scale 4-6) with oral narcotics, Alternate with [place] for pain scale 1-3 or Alternate with [place] for pain scale 4-6. [facility] acetaminoph en-codeine (TYLENOL #3) 300-30 mg tablet 11-16 00:00: 00 09-14 00:00 :00 No 2{tbl} Take 2 tablets by mouth every 4 (four) hours as needed for Pain (scale 1-3). [facility] FLUoxetine (PROZAC) 10 mg capsule 07-19 00:00: 00 Yes [facility] Vital Signs Vital Name Observation Time Observation Value Comments S ource Systolic blood pressure 2020-09-25 21:29:00 108 mm[Hg] [facility] Diastolic blood pressure 2020-09-25 21:29:00 65 mm[Hg] [facility] Heart rate 2020-09-25 21:29:00 91 /min [facility] Body temperature 2020-09-25 21:29:00 36.67 Rosario [facility] Respiratory rate 2020-09-25 21:29:00 14 /min [facility] Body weight 2020-09-25 21:29:00 61.236 kg [facility] BMI 2020-09-25 21:29:00 25.51 kg/m2 [facility] Oxygen saturation in Arterial blood by Pulse oximetry 2020-09-25 21:29:00 99 /min [facility] Systolic blood pressure 2020-09-15 01:50:00 115 mm[Hg] [facility] Diastolic blood pressure 2020-09-15 01:50:00 77 mm[Hg] [facility] Heart rate 2020-09-15 01:50:00 100 /min [facility] Body temperature 2020-09-15 01:50:00 36.61 Rosario [facility] Respiratory rate 2020-09-15 01:50:00 18 /min [facility] Body weight 2020-09-15 01:50:00 61.236 kg [facility] BMI 2020-09-15 01:50:00 25.51 kg/m2 [facility] Oxygen saturation in Arterial blood by Pulse oximetry 2020-09-15 01:50:00 98 /min [facility] Diastolic blood pressure 2020-08-31 06:40:00 76 mm[Hg] [facility] Heart rate 2020-08-31 06:40:00 68 /min [facility] Respiratory rate 2020-08-31 06:40:00 17 /min [facility] Oxygen saturation in Arterial blood by Pulse oximetry 2020-08-31 06:40:00 99 /min [facility] Systolic blood pressure 2020-08-31 06:40:00 114 mm[Hg] [facility] Body temperature 2020-08-31 03:04:00 36.78 Rosario [facility] Body weight 2020-08-31 03:04:00 61.236 kg [facility] BMI 2020-08-31 03:04:00 25.51 kg/m2 [facility] Systolic blood pressure 2019-09-01 04:30:00 114 mm[Hg] [facility] Diastolic blood pressure 2019-09-01 04:30:00 65 mm[Hg] [facility] Heart rate 2019-09-01 04:30:00 74 /[facility] Respiratory rate 2019-09-01 04:30:00 16 /min [facility] Oxygen saturation in Arterial blood by Pulse oximetry 2019-09-01 04:30:00 99 /min [facility] Body temperature 2019-09-01 03:24:00 37.17 Rosario [facility] Body height 2019-09-01 03:24:00 154.9 cm [facility] Body weight 2019-09-01 03:24:00 52.164 kg [facility] BMI 2019-09-01 03:24:00 21.73 kg/m2 [facility] Procedures Procedure Date / Time Performed Performing Clinician Source BI ULTRASOUND BREAST COMPLETE BILATERAL 2022-11-13 16:21:00 Trina Barrientos [facility] BI DIAGNOSTIC TOMOSYNTHESIS BILATERAL 2022-11-13 15:56:00 Requisition, Paper [facility] XR FOREARM 2 VW LEFT 2020-09-25 23:03:31 Peter Valentine [facility] XR HUMERUS 2 VW LEFT 2020-09-25 23:03:31 Peter Valentine [facility] CONSENT/REFUSAL FOR DIAGNOSIS AND TREATMENT 2020-09-25 21:25:37 Doctor Unassigned, Rosenberg [facility] XR HAND 3+ VW LEFT 2020-09-15 03:14:34 Franko Moran [facility] NOTICE OF PRIVACY PRACTICES 2020-09-15 01:46:07 Doctor Unassigned, Rosenberg [facility] CONSENT/REFUSAL FOR DIAGNOSIS AND TREATMENT 2020-09-15 01:45:46 Doctor Unassigned, Rosenberg [facility] XR ABDOMEN 2 VW 2020-08-31 05:50:04 [facility] 2020-08-31 03:38:00 Cynthia Almanza [facility] COMP. METABOLIC PANEL (90348) 2020-08-31 03:38:00 Cynthia Almanza [facility] CBC WITH DIFF 2020-08-31 03:38:00 Cynthia Almanza [facility] URINALYSIS 2020-08-31 03:38:00 Cynthia Almanza [facility] NOTICE OF PRIVACY PRACTICES 2020-08-31 02:55:56 Doctor Unassigned, Rosenberg [facility] CONSENT/REFUSAL FOR DIAGNOSIS AND TREATMENT 2020-08-31 02:51:44 Doctor Unassigned, Rosenberg [facility] URINALYSIS 2019-09-01 03:37:00 Cheyanne Ann [facility] POCT TEST 2019-09-01 03:37:00 Cheyanne Ann e [facility] Encounters Start Date/Time End Date/Time Encounter Type Admission Type Attending [facility] Care Facility Care Department Encounter ID Source 2023-05-04 00:00:00 2023-05-04 00:00:00 Outpatient GC_GCBZW_Ka ginette_S PRIV PRIV [id number] [facility] 2023-05-03 00:00:00 2023-05-03 00:00:00 Outpatient GC_GCBZW_Ka diyala_S PRIV PRIV [id number] [facility] 2022-11-13 10:11:24 2022-11-13 23:59:00 Hospital Encounter Radiology [facility] [id number] 350.1.13.10 [id number] [id number] [facility] 2022-11-13 10:12:12 2022-11-13 10:10:00 Outpatient R RADIOLOGY [facility] [id number] [facility] 2022-11-13 09:55:32 2022-11-13 10:10:00 Hospital Encounter Radiology [facility] [id number] 350.1.13.10 4.2.7.2.686 [id number] [facility] 2020-09-25 16:30:00 2020-09-25 18:27:00 Emergency Peter Valentine [facility] [id number] 350.1.13.10 4.2.7.2.686 [id number] [facility] 2020-09-25 16:30:00 2020-09-25 16:30:00 Emergency X PETER VALENTINE [facility] ERT [id number] [facility] 2020-09-14 19:52:00 2020-09-14 21:57:00 Emergency Franko Moran [facility] [id number] 4.2.7.2.686 [id number] [facility] 2020-09-14 19:42:00 2020-09-14 19:42:00 Emergency X [facility] ERT [id number] [facility] 2020-08-30 21:07:00 2020-08-31 00:53:00 Emergency Cynthia Almanza [facility] [id number] 350.1.13.10 4.2.7.2.686 [id number] [facility] 2020-08-30 21:07:00 2020-08-30 21:07:00 Emergency X CYNTHIA ALMANZA [facility] ERT [id number] [facility] 2020-08-30 00:00:00 2020-08-30 00:00:00 Orders Only Doctor Unassigned, Rosenberg [facility] [id number] 350.1.13.10 4.2.7.2.686 [id number] [facility] 2019-08-31 21:12:43 2019-08-31 22:57:00 Emergency Cheyanne Ann [facility] [id number] 350.1.13.10 4.2.7.2.686 [id number] [facility] 2019-08-31 21:09:00 2019-08-31 21:09:00 Emergency X [facility] ERT [id number] [facility] Results Test Description Test Time Test Comments Results Resul t Comments Source XR ABDOMEN 2 VW 2020-08-07 6 05:59:50 1. ?Moderate distention of the colon with stool and gas consistent withconstipation. No acute obstruction.EXAM: XR [...] and gas consistent withconstipation. [facility] acute [facility] [id number] 04:54:00* Test Item Value Reference Range Interpretation Comme nts LIPASE (test code = 3851588235) <10 0-220 Lab Interpretation (test cod e = 97474-0) [facility]:00* Test Item Value Reference Range Interpretation Comme nts APPEARANCE (test code = 6742598599) Cloudy Clear A COLOR (test code = 6725723342) Yellow Yellow PH (test code = 6845331518) 4.8-8.0 SP GRAVITY (test code = 2893227139) 1.003-1.030 GLU U QUAL (test code = 6923354696) Normal Normal BLOOD (test code = 8173451019) Negative Negative KETONES (test code = 5852766584) Negative Negative PROTEIN (test code = 2887-8) Negative Negative UROBILIN (test code = 1608016605) Normal Normal BILIRUBIN (test code = 0831497300) Negative Negative NITRITE (test code = 9462635590) Negative Negative LEUK LIZETH (test code = 6931110763) Negative Negative RBC/HPF (test code = 7896222017) See_Comment [[employer]] The system which generated this result transmitted reference range: 0 - 3 HPF. The reference range was not used to interpret this result as normal/abnormal. WBC/HPF (test code = 3751204772) <1 See_Comment [[employer]] The system which generated this result transmitted reference range: 0 - 5 HPF. The reference range was not used to interpret this result as normal/abnormal. BACTERIA (test code = 9340979951) Few Negative A AMORPHOUS (test code = 2320817480) Rare Rare HPF SQ EPITH (test code = 8040390291) HPF Lab Interpretation (test code = 17657-6) Abnormal [facility] with [id number] 04:11:00* Test Item Value Reference Range Interpretation Comme nts WBC (test code = 6690-2) See_Comment [[employer]] The system which generated this result transmitted reference range: 4.30 - 11.10 10*3/?L. The reference range was not used to interpret this result as normal/abnormal. RBC (test code = 789-8) See_Comment L [Automated messa ge] The system which generated this result transmitted reference range: 3.93 - 5.25 10*6/?L. The reference range was not used to interpret this result as normal/abnormal. HGB (test code = 718-7) 12.1 g/dL 11.6-15 HCT (test code = 4544-3) 36.2 % 35.7-45.2 MCV (test code = 787-2) 95.8 fL 80.6-95.5 H MCH (test code = 785-6) 32.0 pg 25.9-32.8 MCHC (test code = 786-4) 33.4 g/dL 31.6-35.1 RDW-SD (test code = 12738-2) 44.9 fL 39-49.9 RDW-CV (test code = 788-0) 12.7 % 12-15.5 PLT (test code = 777-3) See_Comment [[employer]] The system which generated this result transmitted reference range: 166 - 358 10*3/?L. The reference range was not used to interpret this result as normal/abnormal. MPV (test code = 27308-0) 9.3 fL 9.5-12.9 L NRBC/100 WBC (test code = 1891510579) See_Comment [Automated [employer] ssage] The system which generated this result transmitted reference range: 0.0 - 10.0 /100 WBCs. The reference range was not used to interpret this result as normal/abnormal. NRBC x10^3 (test code = 2204889772) <0.01 See_Comment [Automated messa ge] The system which generated this result transmitted reference range: 10*3/?L. The reference range was not used to interpret this result as normal/abnormal. GRAN MAT (NEUT) % (test code = 770-8) 49.2 % IMM GRAN % (test code = 2052187214) 0.20 % LYMPH % (test code = 736-9) 40.4 % MONO % (test code = 5905-5) 7.6 % EOS % (test code = 713-8) 1.9 % BASO % (test code = 706-2) 0.7 % GRAN MAT x10^3(ANC) (test code = 3516004214) 2.78 10*3/uL 1.88-7.09 IMM GRAN x10^3 (test code = 9214953885) 0.01 10*3/uL 0-0.06 LYMPH x10^3 (test code = 731-0) 2.28 10*3/uL 1.32-3.29 MONO x10^3 (test code = 742-7) 0.43 10*3/uL 0.33-0.92 EOS x10^3 (test code = 711-2) 0.11 10*3/uL 0.03-0.39 BASO x10^3 (test code = 704-7) 0.04 10*3/uL 0.01-0.07 Lab Interpretation (test code = 18141-2) [facility] 04:21:00* Test Item Value Reference Range Interpretation Comme nts APPEARANCE (test code = 3922883685) Cloudy Clear A COLOR (test code = 6437013072) Yellow Yellow PH (test code = 1236389491) 4.8-8.0 SP GRAVITY (test code = 7264655601) 1.003-1.030 GLU U QUAL (test code = 4078763584) Normal Normal BLOOD (test code = 8386802757) 1+ Negative A KETONES (test code = 5581102071) Negative Negative PROTEIN (test code = 2887-8) Negative Negative UROBILIN (test code = 9561483998) Normal Normal BILIRUBIN (test code = 2194755775) Negative Negative NITRITE (test code = 5567669735) Negative Negative LEUK LIZETH (test code = 2128291941) Negative Negative RBC/HPF (test code = 1732818865) See_Comment H [Automated messa ge] The system which generated this result transmitted reference range: 0 - 3 HPF. The reference range was not used to interpret this result as normal/abnormal. WBC/HPF (test code = 6020833047) See_Comment [Automated messa ge] The system which generated this result transmitted reference range: 0 - 5 HPF. The reference range was not used to interpret this result as normal/abnormal. BACTERIA (test code = 8888204180) Few Negative A MUCOUS (test code = 1988822497) Slight Negative LPF A SQ EPITH (test code = 6464655091) HPF Lab Interpretation (test code = 57632-1) [id number] 03:37:00* Test Item Value Reference Range Interpretation Comme nts POCT PREG (test code = 1605) negative On board controls acceptable with C Line (test code = 3574) present POCT PREG LOT # (test code = 3575) [id number] POCT PREG TEST DATE ( test code = 3576) 2021-02-02 Lab Interpretation (test cod e = 93765-2) Normal [facility]
[2023-10-18] MEDS ORDERED: NA CHLORIDE 0.9% 1,000 ML ONE (11:06)
[2023-10-18 11:22] LABS: Specific Gravity 1.003 (1.005-1.030)
[2023-10-18 11:23] LABS: Absolute Eosinophils 0.1 K/uL (0-0.5); Absolute Lymphocytes (CBC) 1.2 K/uL (0.7-4.9); Absolute Monocytes 0.3 K/uL (0.1-1.3); Absolute Neutrophil 3.8 K/uL (1.8-8.0); Basophils % 0.6 % (0-1.3); Hematocrit 42.9 % (36.0-45.0); Hemoglobin 14.4 g/dL (12.0-15.0); Lymphocytes % 22.7 % (15.3-44.8); MCH 31.6 pg (27.0-35.0); MCHC 33.5 g/dL (32.0-36.0); MCV 94.4 fL (80-100); MPV 6.9 fL (7.6-11.3); Monocytes % 5.4 % (3.3-12.3); Neutrophils % 70.3 % (41.7-73.7); Nucleated Red Blood Cells % 0.1 % (0-0); Platelets 230 thou/uL (152-406); RBC Red Blood Cell Count 4.55 M/uL (3.86-4.86); Red Cell Distribution Width 13.2 % (12.1-15.2)
[2023-10-18 11:27] LABS: Specific Gravity < 1.005 (1.005-1.030); Sqamous Epithelial <5 /HPF (None Seen); Urine Bacteria None Seen /HPF (<20); Urine Bilirubin NEGATIVE (Negative); Urine Blood Negative (Negative); Urine Clarity Turbid (Clear); Urine Color Colorless (Yellow); Urine Culture Reflex Order NOT NEEDED; Urine Glucose NEGATIVE (Negative); Urine Ketones NEGATIVE (Negative); Urine Microscopic Reflex YN ORDER UMIC; Urine Nitrite NEGATIVE (Negative); Urine Protein NEGATIVE (Negative); Urine RBC <5 /HPF (None Seen); Urine Urobilinogen Normal (Normal); Urine WBC None Seen /HPF (<5); Urine pH 6.5 (5.0-7.0)
[2023-10-18 11:28] LABS: PTT, Activated Partial Thromb 35.6 SECONDS (24.3-36.9)
[2023-10-18 11:29] LABS: PT Prothrombin Time 11.5 SECONDS (9.5-12.5); Protime INR 1.05
[2023-10-18 11:30] LABS: Barbiturates NEGATIVE (NEGATIVE); Benzodiazepines NEGATIVE (NEGATIVE); Cocaine NEGATIVE (NEGATIVE); METHAMPHETAM NEGATIVE (NEGATIVE); Methadone NEGATIVE (NEGATIVE); Opiates NEGATIVE (NEGATIVE); Phencyclidine NEGATIVE (NEGATIVE); THC Cannibis NEGATIVE (NEGATIVE)
--- NOTE | 2023-10-18 11:30 | RAD REPORT ---
EXAM DESCRIPTION: CT - Head Brain Wo Cont - 10/18/2023 11:02 am CLINICAL HISTORY: Headache;Seizure COMPARISON: Head Brain Wo Cont dated 08/15/2016 TECHNIQUE: Noncontrast head CT images were obtained without IV contrast. Multiplanar reformats were generated and reviewed. All CT scans are performed using dose optimization technique as appropriate and may include automated exposure control or mA/KV adjustment according to patient size. FINDINGS: No intracranial hemorrhage, mass, or edema. Midline structures are unremarkable. Normal ventricular caliber for age. Mcguire-white matter differentiation is preserved, without evidence of acute infarct. No abnormal extra- axial fluid collections. Mastoid air cells and visualized portions of the paranasal sinuses are clear. No acute bony findings. IMPRESSION: No evidence of an acute intracranial process.
--- NOTE | 2023-10-18 11:33 | RAD REPORT ---
[facility] CLINICAL HISTORY: CHEST PAIN COMPARISON: Chest Single View dated 11/20/2021; Chest Single View dated 03/01/2019; CHEST PA AND LAT 2 VIEW dated 06/25/2015; CHEST SINGLE VIEW dated 09/30/2010 TECHNIQUE: Portable AP view of the chest. FINDINGS: The lungs are clear. No pneumothorax or effusion. The cardiomediastinal contours are unre markable. IMPRESSION: No acute cardiopulmonary process.
[2023-10-18 11:47] LABS: ALT/SGPT 27 U/L (13-56); AST/SGOT 13 U/L (15-37); Albumin 4.6 g/dL (3.4-5.0); Albumin/Globulin Ratio 1.2 (1.1-1.8); Alkaline Phosphatase 72 U/L (45-117); Anion Gap 7.6 mEq/L (5.0-15.0); BUN Blood Urea Nitrogen 7 mg/dL (7-18); Bicarbonate 29 mEq/L (21-32); Bilirubin Direct 0.1 mg/dL (0-0.2); Bilirubin Indirect, Calculated 0.4 mg/dL (0.2-0.8); Bilirubin Total 0.5 mg/dL (0.2-1.0); Globulin 3.9 g/dL (2.3-3.5); Glomerular Filtration Rate 112 ml/min (=/>90); Glucose Level 88 mg/dL (74-106); Magnesium 2.2 mg/dL (1.6-2.4); Potassium 3.6 mEq/L (3.5-5.1); Protein, Total 8.5 g/dL (6.4-8.2); Sodium Level 139 mEq/L (136-145)
[2023-10-18 11:49] LABS: Troponin High Sensitivity < 3.0 pg/mL (<58.9)
[2023-10-18] MEDS ORDERED: KETOROLAC 30 MG/ML INJ ONE (12:44)
[2023-10-18] MEDS ORDERED: dexAMETHasone 10 MG/ML VIAL ONE (12:44)
[2023-10-18] MEDS ORDERED: DIPHENHYDRAMINE 50 MG/ML VIAL ONE (12:45)
[2023-10-18] MEDS ORDERED: METOCLOPRAMIDE 10 MG/2mL INJ ONE (12:45)
--- NOTE | 2023-10-18 13:07 | RAD REPORT ---
EXAM DESCRIPTION: CT - Head angio - 10/18/2023 12:29 pm CLINICAL HISTORY: Headache;Syncope COMPARISON: Head Brain Wo Cont dated 10/18/2023; Head Brain Wo Cont dated 08/15/2016 TECHNIQUE: Axial CT angiography images of the head was performed with multiplanar and maximum intens ity projection reconstructions. Images performed following intravenous administration of 100mL Isovue 370. All CT scans are performed using dose optimization technique as appropriate and may include automated exposure control or mA/KV adjustment according to patient size. FINDINGS: No evidence of large vessel occlusion. No evidence of aneurysm or dissection flap is detec khloe. No flow-limiting stenosis or vascular malformation identified. Antegrade flow is seen in the vertebral arteries. The vertebral arteries are codominant. The visualized dural venous sinuses are grossly patent. IMPRESSION: No evidence of large vessel occlusion or flow-limiting stenosis.
--- NOTE | 2023-10-18 13:10 | RAD REPORT ---
EXAM DESCRIPTION: CT - Neck Angio - 10/18/2023 12:29 pm CLINICAL HISTORY: syncope;Headache COMPARISON: Head Brain Wo Cont dated 10/18/2023 TECHNIQUE: Axial CT angiography images of the neck was performed with multiplanar and maximum intens ity projection reconstructions. Images performed following intravenous administration of 100mL Isovue 370. All CT scans are performed using dose optimization technique as appropriate and may include automated exposure control or mA/KV adjustment according to patient size. Quantification of carotid stenosis, if any, is performed according to NASCET criteria. FINDINGS: A left aortic arch is identified with normal three vessel configuration of the great vesse ls. No significant flow abnormality is seen of the common carotid bilaterally. No significant stenosis is identified involving the cervical segments of both internal carotid arteri es. Normal flow is seen within both vertebral arteries. IMPRESSION: No significant flow abnormality of the neck vessels is identified. CAROTID STENOSIS REFERENCE USING NASCET CRITERIA: % ICA stenosis = (1 - narrowest ICA diameter/diameter of distal cervical ICA) x 100. Mild - <50% stenosis. Moderate - 50-69% stenosis. Severe - 70-94% stenosis. Near occlusion - 95-99% stenosis. Occluded - 100% stenosis.
--- NOTE | 2023-10-18 13:38 | ER ---
Nurse's Notes [facility] Name: Camila Nieto Age: 33 yrs Sex: Female : 1990 Arrival Date: 10/18/2023 Time: 10:33 Bed 4 Private MD: Diagnosis: Palpitations;Other headache syndrome Presentation: 10/17 10:40 Chief complaint: Patient states: seen at [facility] for possible seizure and aa5 states "I just haven't been feeling right, I have headache, I feel shaky, and I feel like I've been hit by a bus". 10:40 Coronavirus screen: At this time, the client does not indicate any symptoms associated aa5 with coronavirus-19. Ebola Screen: Patient denies travel to an Ebola-affected area in the 21 days before illness onset. Initial Sepsis Screen: Does the patient meet any 2 criteria? HR > 90 bpm. Does the patient have a suspected source of infection? No. Patient's initial sepsis screen is negative. Risk Assessment: Do you want to hurt yourself or someone else? Patient reports no desire to harm self or others. Onset of symptoms was October 2023. 10:40 Acuity: ANASTASIIA 3 aa5 10:40 Method Of Arrival: Ambulatory aa5 Historical: - Allergies: 10:49 Latex; aa5 - PMHx: 10:49 Anxiety; Bipolar disorder; PTSD; aa5 - Immunization history:: Adult Immunizations unknown. - Social history:: Smoking status: unknown. Screenin:18 [facility] ED Fall Risk Assessment (Adult) History of falling in the last 3 months, nj1 including since admission No falls in past 3 months (0 pts) Confusion or Disorientation No (0 pts) Intoxicated or Sedated No (0 pts) Impaired Gait No (0 pts) Mobility Assist Device Used No (0 pt) Altered Elimination No (0 pt) Score/Fall Risk Level 0 - 2 = Low Risk Oriented to surroundings, Maintained a safe environment, Hourly rounding (assess needs \\T\\ fall precautionary measures) done. Abuse screen: Denies threats or abuse. Denies injuries from another. Nutritional screening: No deficits noted. Tuberculosis screening: No symptoms or risk factors identified. Assessment: 10:57 General: Appears in no apparent distress. comfortable, Behavior is calm, cooperative, nj1 appropriate for age. 10:57 Pain: Denies pain. Neuro: Level of Consciousness is awake, alert, obeys commands, nj1 Oriented to person, place, time, situation, Reports a syncopal episode Lightheaded. 10:57 Cardiovascular: Patient's skin is warm and dry. Respiratory: Airway is patent nj1 Respiratory effort is even, unlabored. 12:39 Reassessment: Patient appears in no apparent distress at this time. Patient and/or nj1 family updated on plan of care and expected duration. Pain level reassessed. Patient is alert, oriented x 3, equal unlabored respirations, skin warm/dry/pink. Vital Signs: 10:40 BP 144 / 100; Pulse 114; Resp 16 S; Temp 97.9(TE); Pulse Ox 100% on R/A; aa5 11:20 BP 124 / 94; Pulse 83; Resp 16; Pulse Ox 100% ; nj1 12:39 BP 129 / 81; Pulse 81; Resp 16; Pulse Ox 100% ; nj1 ED Course: 10:35 Patient arrived in ED. mg5 10:35 Molly Holt PA-C is PHCP. sb4 10:35 Sidney Berrios MD is Attending Physician. sb4 10:40 Arm band placed on Patient placed in an exam room, on a stretcher. aa5 10:41 Mari Gipson, MAR is Primary Nurse. nj1 10:49 Triage completed. aa5 11:03 CT Head Brain wo Cont In Process Unspecified. EDMS 11:09 Chest Single View XRAY In Process Unspecified. EDMS 11:14 Inserted saline lock: 22 gauge in right antecubital area, using aseptic technique. nj1 Blood collected. 11:19 Patient has correct armband on for positive identification. Placed in gown. Bed in low nj1 position. Call light in reach. Adult w/ patient. Provided Education on: call light, fall precautions. 12:[address] In Process Unspecified. EDMS 12:[address] In Process Unspecified. EDMS 13:38 Aníbal León MD is Referral Physician. sb4 13:38 Ezra Herrera MD is Referral Physician. sb4 14:32 No provider procedures requiring assistance completed. IV discontinued, intact, ss bleeding controlled, No redness/swelling at site. Pressure dressing applied. Administered Medications: 11:14 Drug: NS 0.9% IV 1000 ml IV at 1 bolus Per protocol; 1000 mL bolus Route: IV; Rate: 1 nj1 bolus; Site: right antecubital; 14:33 Follow up: IV Status: Completed infusion; IV Intake: 1000ml ss 12:45 Drug: Ketorolac IVP 15 mg IVP once Route: IVP; Site: right antecubital; ok1 14:33 Follow up: Response: No adverse reaction; Pain is decreased ss 12:46 Drug: diphenhydrAMINE IVP 12.5 mg IVP once Route: IVP; Site: right antecubital; nj1 14:34 Follow up: Response: No adverse reaction ss 12:47 Drug: metoCLOPramide IVP 10 mg IVP once; over 1 to 2 minutes Route: IVP; Site: right nj1 antecubital; 14:34 Follow up: Response: No adverse reaction ss 12:49 Drug: Decadron - Dexamethasone IVP 10 mg IVP once Route: IVP; Site: right antecubital; [facility] 14:33 Follow up: Response: No adverse reaction ss Intake: 14:33 IV: 1000ml; Total: 1000ml. ss Outcome: 13:38 Discharge ordered by sb4 14:32 Discharged to home ambulatory, 14:32 Condition: good 14:32 Discharge instructions given to patient, family, Instructed on discharge instructions, follow up and referral plans. medication usage, Demonstrated understanding of instructions, follow-up care, medications, 14:33 Patient left the ED. ss Signatures: Dispatcher [employer] EDMA Nolvia Valerio RN RN aa5 [place]ita [place] RN RN Molly Whyte, PA-C PA-C sb4 Mari Gipson RN RN nj1 Pooja Swan mg5
--- NOTE | 2023-10-18 13:38 | EDPHYS ---
Physician Documentation [facility] Name: Camila Nieto Age: 33 yrs Sex: Female : 1990 Arrival Date: 10/18/2023 Time: 10:33 Bed 4 Private MD: ED Physician Sidney Berrios HPI: 10/17 10:52 This 33 yrs old Female presents to ER via Ambulatory with complaints of Doesn't Feel sb4 Right. 10:52 patient reports a fluttering sensation in her chest for several weeks now. significant sb4 other states that 2 days ago, she had an "episode" at home where she went "unresponsive" for about 20 minutes. she did not exhibit any seizure like activity, no shaking, loss of bowel/bladder control, apnea- but she does not remember any of it. she went to [facility] afterwards, had a negative cardiac/neuro workup. states that she had another similar episode yesterday and still just doesn't feel right. Historical: - Allergies: 10:49 Latex; aa5 - PMHx: 10:49 Anxiety; Bipolar disorder; PTSD; aa5 - Immunization history:: Adult Immunizations unknown. - Social history:: Smoking status: unknown. ROS: 10:52 Constitutional: Negative for fever, chills, and weight loss, sb4 10:52 Cardiovascular: Positive for palpitations, 10:52 Neuro: Positive for headache, 10:52 All other systems are negative, Exam: 10:52 Head/Face: Normocephalic, atraumatic. Eyes: Extra-ocular motions intact. Periorbital sb4 areas with no swelling, redness, or edema. ENT: Mucous membranes moist. Respiratory: Lungs have equal breath sounds bilaterally, clear to auscultation and percussion. No rales, rhonchi or wheezes noted. No increased work of breathing, no retractions or nasal flaring. Abdomen/GI: Soft, non-tender, no distension. Back: No spinal tenderness. No costovertebral tenderness. Full range of motion. Skin: Warm, dry with normal turgor. Normal color with no rashes, no lesions, and no evidence of cellulitis. MS/ Extremity: Pulses equal, no cyanosis. Neurovascular intact. Full, normal range of motion. Neuro: Awake and alert, GCS 15, oriented to person, place, time, and situation. Motor strength 5/5 in all extremities. Sensory grossly intact. 10:52 Constitutional: The patient appears in no acute distress, alert, awake, anxious 10:52 Cardiovascular: Rate: tachycardic, Rhythm: regular, Vital Signs: 10:40 BP 144 / 100; Pulse 114; Resp 16 S; Temp 97.9(TE); Pulse Ox 100% on R/A; aa5 11:20 BP 124 / 94; Pulse 83; Resp 16; Pulse Ox 100% ; nj1 12:39 BP 129 / 81; Pulse 81; Resp 16; Pulse Ox 100% ; nj1 MDM: 10:40 Patient medically screened. sb4 11:57 Scoring Tools HEART Score: History: ECG: Age: Risk Factors: 1 or 2 risk factors (1), sb4 Troponin: Total Score = 1. 13:37 Data reviewed: vital signs, nurses notes, lab test result(s), EKG, radiologic studies, sb4 and as a result, I will discharge patient. Counseling: I had a detailed discussion with the patient and/or guardian regarding the historical points, exam findings, and any diagnostic results supporting the discharge/admit diagnosis, lab results, radiology results, the need for outpatient follow up, a senior marketing coordinator, a neurologist, to return to the emergency department if symptoms worsen or persist or if there are any questions or concerns that arise at home. 10/17 10:52 Order name: Basic Metabolic Panel; Complete Time: 11:50 sb4 10/17 10:52 Order name: CBC with Diff; Complete Time: 11:41 sb4 10/17 10:52 Order name: Hepatic Function; Complete Time: 11:50 sb4 10/17 10:52 Order name: Magnesium; Complete Time: 11:50 sb4 10/17 10:52 Order name: Test, Urine; Complete Time: 11:41 sb4 10/17 10:52 Order name: Protime (+inr); Complete Time: 11:41 sb4 10/17 10:52 Order name: Ptt, Activated; Complete Time: 11:41 sb4 10/17 10:52 Order name: Troponin High Sensitivity; Complete Time: 11:50 sb4 10/17 10:52 Order name: UDS; Complete Time: 11:41 sb4 10/17 10:52 Order name: Urinalysis w/ reflexes; Complete Time: 11:41 sb4 10/17 10:52 Order name: TSH; Complete Time: 11:50 sb4 10/17 10:52 Order name: CT Head Brain wo Cont; Complete Time: 11:41 sb4 10/17 10:52 Order name: Chest Single View XRAY; Complete Time: 11:41 sb4 10/17 12:04 Order name: Head Angio CT; Complete Time: 13:11 sb4 10/17 12:04 Order name: Neck Angio CT; Complete Time: 13:14 sb4 10/17 10:52 Order name: Cardiac monitoring; Complete Time: 10:57 sb4 10/17 10:52 Order name: EKG - Nurse/Tech; Complete Time: 12:40 sb4 10/17 10:52 Order name: IV Saline Lock; Complete Time: 11:17 sb4 10/17 10:52 Order name: Labs collected and sent; Complete Time: 11:17 sb4 10/17 10:52 Order name: O2 Per Protocol; Complete Time: 10:57 sb4 10/17 10:52 Order name: O2 Sat Monitoring; Complete Time: 10:57 sb4 EC:40 Rate is 72 beats/min. Rhythm is regular, Normal Sinus Rhythm. TN interval is normal at sb4 144 msec. QRS interval is normal at 82 msec. QT interval is normal at 376 msec. No Q waves. T waves are Normal. No ST changes noted. Clinical impression: Normal ECG and No evidence of ischemia. Interpreted by me. Reviewed by me. Administered Medications: 11:14 Drug: NS 0.9% IV 1000 ml IV at 1 bolus Per protocol; 1000 mL bolus Route: IV; Rate: 1 nj1 bolus; Site: right antecubital; 14:33 Follow up: IV Status: Completed infusion; IV Intake: 1000ml ss 12:45 Drug: Ketorolac IVP 15 mg IVP once Route: IVP; Site: right antecubital; nj1 14:33 Follow up: Response: No adverse reaction; Pain is decreased ss 12:46 Drug: diphenhydrAMINE IVP 12.5 mg IVP once Route: IVP; Site: right antecubital; nj1 14:34 Follow up: Response: No adverse reaction ss 12:47 Drug: metoCLOPramide IVP 10 mg IVP once; over 1 to 2 minutes Route: IVP; Site: right nj1 antecubital; 14:34 Follow up: Response: No adverse reaction ss 12:49 Drug: Decadron - Dexamethasone IVP 10 mg IVP once Route: IVP; Site: right antecubital; nj1 14:33 Follow up: Response: No adverse reaction ss Disposition: 16:06 Co-signature as Attending Physician, Sidney Berrios MD I reviewed the patient's care rt provided by the Advanced Practice Provider and agree with the diagnosis and treatment plan. Disposition Summary: 10/18/23 13:38 Discharge Ordered Notes: Location: Home sb4 Problem: new sb4 Symptoms: have improved sb4 Condition: Stable sb4 Diagnosis - Palpitations sb4 - Other headache syndrome sb4 Followup: sb4 - With: Aníbal León MD - When: As needed - Reason: Further diagnostic work-up, Recheck today's complaints, Re-evaluation by your physician Followup: sb4 - With: Ezra Herrera MD - When: As needed - Reason: Further diagnostic work-up, Re-evaluation by your physician Discharge Instructions: - Discharge Summary Sheet sb4 - General Headache Without Cause sb4 - Palpitations sb4 Forms: - Thank You Letter sb4 - Patient Portal Instructions sb4 - Leadership Thank You Letter sb4 Signatures: Dispatcher [employer] Nolvia Mulligan, MAR RN aa5 Molly Holt PA-C PAKhushiC sb4 Sidney Berrios MD MD rt Mari Gipson RN RN nj1 [place] RN ss Corrections: (The following items were deleted from the chart) 10:53 10:52 BASIC METABOLIC PANEL+C.LAB.BRZ ordered. EDMS EDMS 10:53 10:52 CBC+H.LAB.BRZ ordered. EDMS EDMS 10:53 10:52 HEPATIC FUNCTION+C.LAB.BRZ ordered. EDMS EDMS 10:53 10:53 MAGNESIUM+C.LAB.BRZ ordered. EDMS EDMS 10:53 10:53 Test, Urine+UC.LAB.BRZ ordered. EDMS EDMS 10:53 10:53 PROTIME (+INR)+COAG.LAB.BRZ ordered. EDMS EDMS 10:53 10:53 PTT, ACTIVATED+COAG.LAB.BRZ ordered. EDMS EDMS 10:53 10:53 Troponin High Sensitivity+C.LAB.BRZ ordered. EDMS EDMS 10:53 10:53 URINE DRUG SCREEN+UC.LAB.BRZ ordered. EDMS EDMS 10:53 10:53 Urinalysis+U.LAB.BRZ ordered. EDMS EDMS 10:53 10:53 THYROID STIMULAT HORMONE+C.LAB.BRZ ordered. EDMS EDMS
[2023-10-18 15:52] VITALS: BP 129/81; TEMP 97.9; O2SAT 100
== END 2023-10-18 14:33 | disposition home or self-care (01) ==
LOC: ER 10:33
DX: R00.2 Palpitations (principal); G44.89 Other headache syndrome; Z91.040 Latex allergy status
CPT/HCPCS: 96361; 93005; 85025; 81001; 80048; 36415; 83735; 81025; 85610; 80076; 85730; 84443; 84484; 80307; 70450; 70496; 70498; 71045; 96375; 96374; 99284; Q9967; J2765; J1200; J1100; J7030